=== PATIENT | female | born 1960 | race Caucasian/White ===

== ENCOUNTER 2016-06-10 11:23 | Inpatient (IN) | payer MEDICAID ==
[~2016-06-10] VITALS: Ht 160 cm; Wt 65.5 kg
[2016-06-10 12:18] LABS: BASOPHILS 0.2 % (0.0-2.0); EOSINOPHILS 0.6 % (0-7); HEMATOCRIT 34.7 % (36.0-48.0); HEMOGLOBIN 10.8 g/dL (12-16); IMMATURE GRANULOCYTES 0.4 % (0-5); LYMPHOCYTES 7.4 % (15-50); MCH 26.5 pg (26.0-34.0); MCHC 31.1 g/dL (31.0-37.0); MCV 85.3 fL (80.0-100.0); MEAN PLATELET VOLUME 9.3 fL (7.4-10.4); MONOCYTES 6.7 % (2-11); NEUTROPHILS 84.7 % (40-80); PLATELET COUNT 221 10x3/uL (130-400); RBC 4.07 10x6/uL (4.00-5.40); RDW 14.5 % (11.5-14.5); WBC 8.5 10x3/uL (4.8-10.8)
[2016-06-10 12:29] LABS: ALBUMIN 2.2 g/dL (3.4-5.0); BILIRUBIN - TOTAL 0.26 mg/dL (0.2-1.3); CALCIUM 9.4 mg/dL (8.5-10.1); CARBON DIOXIDE 24.9 mmol/L (21.0-32.0); CREATININE - SERUM 5.5 mg/dL (0.6-1.3); POTASSIUM - SERUM 5.9 mmol/L (3.5-5.1); PROTEIN - SERUM 7.6 g/dL (6.4-8.2)
[2016-06-10 13:12] LABS: APPEARANCE SLT CLOUDY (CLEAR); BILIRUBIN NEGATIVE (NEGATIVE); COLOR YELLOW (YELLOW); GLUCOSE 250 mg/dL (NEGATIVE); KETONE MODERATE mg/dL (NEGATIVE); LEUKOCYTE ESTERASE TRACE (NEGATIVE); NITRITE NEGATIVE (NEGATIVE); PROTEIN 3+ mg/dL (NEGATIVE); UROBILINOGEN NORMAL (NORMAL)
[2016-06-10 13:17] LABS: WHITE CELLS - URINE 0-5 /hpf (0-5)
[2016-06-10 13:18] LABS: BACTERIA MANY /hpf (NONE SEEN); EPITHELIAL CELLS 25-50 /hpf (0-5); MUCUS >1+ /lpf (NONE SEEN)
[2016-06-10 13:19] LABS: GRANULAR CAST RARE /lpf (NONE SEEN); WAXY CAST RARE /lpf (NONE SEEN)
[2016-06-10 20:00] VITALS: BP 182/78
--- NOTE | 2016-06-10 20:00 | NUR ---
PT RECEIVED TO ROOM 2112 AT THIS TIME VIA WHEELCHAIR ACCOMPANIED BY HOSPITAL STAFF AND FAMILY. ORIENTED PT TO ROOM AND CALL LIGHT. PT VERBALIZED UNDERSTANDING. PT CHANGED INTO GOWN AT THIS TIME. ADMISSION HISTORY AND ASSESSMENT COMPLETED PER FLOW SHEET AT THIS TIME. HEART RRR. LUNG SOUNDS CLEAR BILATERALLY. BOWEL SOUNDS ACTIVE X4 QUADRENTS. FISTULA NOTED TO LEFT FOREARM. NOTED BRUIT AND THRILL. S/L NOTED TO RIGHT FOREARM. DRESSING CDI. ABDOMEN SOFT NON-DISTENDED. PT STATES IT FEELS TENDER ON THE INSIDE FROM VOMITING. PT RATES PAIN 8/10 AT THIS TIME. PT DENIES NEEDS. BED LOW. PHONE AND CALL LIGHT IN REACH. SRX2.
[2016-06-10 20:21] VITALS: BP 182/78; BMI 23.0
--- NOTE | 2016-06-10 22:08 | NUR ---
PT IV INITIATED AT THIS TIME NS @ 50 CC/HR WITH MORPHINE SNOW REMOVAL/PLOWING. INSTRUCTED PT ON HOW TO USE SNOW REMOVAL/PLOWING. PT VERBALIZED UNDERSTANDING. DENIES NEEDS. BED LOW. PHONE AND CALL LIGHT IN REACH. SRX2.
--- NOTE | 2016-06-10 23:14 | NUR ---
PT RESTING QUIETLY AT THIS TIME WITH EYES CLOSED. RESPIRATIONS EVEN, NON-LABORED. NO ACUTE DISTRESS NOTED AT THIS TIME. BED LOW. PHONE AND CALL LIGHT IN REACH. SRX2.
[2016-06-11] VITALS: BP 192/81
--- NOTE | 2016-06-11 00:45 | NUR ---
PT RESTING QUIETLY AT THIS TIME WITH EYES CLOSED. AROUSED EASILY. PT REQUESTS ICE WATER AT THIS TIME. DENIES OTHER NEEDS. BED LOW. PHONE AND CALL LIGHT IN REACH. SRX2.
[2016-06-11] MEDS ORDERED: HYDRALAZINE HCL50 MG PO (02:59)
[2016-06-11] MEDS ORDERED: NEURONTIN 300300 MG PO (02:59)
[2016-06-11] MEDS ORDERED: PRINIVIL20 MG PO (03:00)
[2016-06-11] MEDS ORDERED: LASIX80 MG PO (03:00)
[2016-06-11] MEDS ORDERED: PROTONIX40 MG PO (03:01)
[2016-06-11] MEDS ORDERED: RENVELA800 MG PO (03:02)
[2016-06-11] MEDS ORDERED: EFFEXOR75 MG PO (03:04)
[2016-06-11] MEDS ORDERED: PHENERGAN25 M1 PO (03:05)
[2016-06-11] MEDS ORDERED: XANAX0.5 MG PO (03:06)
[2016-06-11] MEDS ORDERED: GLUCOTROL 5 MG T5 MG PO (03:07)
[2016-06-11] MEDS ORDERED: NORCO 7.5/325 T1 TA1 PO (03:33)
[2016-06-11 04:00] VITALS: BP 241/96
--- NOTE | 2016-06-11 04:03 | NUR ---
PT AWAKE AND ALERT AT THIS TIME. REQUESTS ICE WATER AT THIS TIME. DENIES OTHER NEEDS. BED LOW. PHONE AND CALL LIGHT IN REACH. SRX2.
--- NOTE | 2016-06-11 06:45 | NUR ---
PT RESTING QUIETLY AT THIS TIME WATCHING TV. DENIES NEEDS. BED LOW. PHONE AND CALL LIGHT IN REACH. SRX2.
--- NOTE | 2016-06-11 08:15 | NUR ---
PT RESTING IN BED WITH EYES OPEN CALL LIGHT IN REACH NO PROBLEMS WILL MONITER
[2016-06-11 09:19] VITALS: BP 171/75
[2016-06-11 10:06] VITALS: Ht 160 cm; Wt 65.5 kg
--- NOTE | 2016-06-11 10:14 | NUR ---
Patient Name: ARNAUD CORTES Admission Status: ER Accout number: [id number] Admission Date: 06-10-2016 : 1960 Admission Diagnosis: abdominal pain Attending: PATRICIA Current LOS: 1 Anticipated DC Date: 06-13-2016 Planned Disposition: Home Primary Insurance: MEDICAID [place] Discharge Planning Comments: Cm met with patient to complete initial discharge planning assessment. Patient gave consent to complete assessment. Patient reports she lives at home with her mother. She goes to [facility] on and drives herself there. She has been so sick with vomiting that she was not able to drive herself to dialysis on . Her mother stated she is not able to drive. Patient reports that when she feels bad she is just not able to make it to dialysis. Patient plans to return home with her mother at discharge. CM will continue to follow and assist with dc plan/needs. Final Assembly And Packing Supervisor: Alicia Collado RN, [facility] [phone] Is the patient Alert and Oriented? Yes * How many steps to enter\exit or inside your home? 2 * PCP Dr. Vasquez * Pharmacy [facility] * Preadmission Environment Home with Family * ADLs Independent * Equipment None * List name and contact numbers for known caregivers / representatives who currently or will assist patient after discharge: Pamela Johnson [facility] [place]- [phone] * Community resources currently utilized Other * Please name any agencies selected above. Pamela Johnson [facility] [place] - [phone] * Additional services required to return to the preadmission environment? No * Can the patient safely return to the preadmission environment? Yes * Has this patient been hospitalized within the prior 30 days at any hospital? No
[2016-06-11 12:21] VITALS: BP 216/85
--- NOTE | 2016-06-11 13:28 | NUR ---
PT RESTING IN BED WITH EYES OPEN CALL LIGHT IN REACH WILL MONITER
--- NOTE | 2016-06-11 18:19 | NUR ---
PT IS ALERT. NO SS OF DISTRESS AT THIS TIME. WILL CONTINUE TO MOTNIOR.
[2016-06-11 21:37] VITALS: BP 156/60
[2016-06-12] VITALS (7 sets, daily range): BP systolic 156–223; BP diastolic 70–99
--- NOTE | 2016-06-12 02:05 | NUR ---
Recieved patient and report at 1900, alert and oriented, up adlib, morphine HEALTHCARE ECONOMICS MANAGER, refused medications due to nausea, water and call light in reach, bed locked and in low position, continue plan of care, continue to monitor.
--- NOTE | 2016-06-12 03:21 | NUR ---
Patient resting quietly in bed , no acute distress noted.
--- NOTE | 2016-06-12 08:16 | NUR ---
PT GIVEN PAIN MEDS AND NAUSEA MEDS FOR PAIN AND NAUSEA PER ORDER PAIN OF 10/10 PT VERY UPSET SAYING SHE WANTS TO TALK TO HER DR SHE HAS BEEN IN PAIN ALL NIGHT AND NAUSEATED AND SHE WANTED HER DR NOW I CALLED GIANLUCA NURSE PRACTIONER FOR DR COTTON SHE SAID SHE WAS ON HER WAY TO SEE PT
[2016-06-12 09:58] LABS: BASOPHILS 0.4 % (0.0-2.0); EOSINOPHILS 2.4 % (0-7); HEMATOCRIT 32.6 % (36.0-48.0); HEMOGLOBIN 10.1 g/dL (12-16); IMMATURE GRANULOCYTES 0.1 % (0-5); LYMPHOCYTES 12.9 % (15-50); MCH 26.6 pg (26.0-34.0); MEAN PLATELET VOLUME 9.2 fL (7.4-10.4); MONOCYTES 9.3 % (2-11); NEUTROPHILS 74.9 % (40-80); PLATELET COUNT 187 10x3/uL (130-400); RBC 3.79 10x6/uL (4.00-5.40); RDW 14.5 % (11.5-14.5); WBC 6.8 10x3/uL (4.8-10.8)
[2016-06-12 10:53] LABS: ANION GAP 14.5 mmol/L (8-16); CARBON DIOXIDE 25.2 mmol/L (21.0-32.0); CREATININE - SERUM 4.9 mg/dL (0.6-1.3); POTASSIUM - SERUM 4.7 mmol/L (3.5-5.1)
--- NOTE | 2016-06-12 14:56 | NUR ---
PT BLOOD PRESSURE ELEVATED SEPARATOR INSERTER GIANLUCA WITH DIALYSIS CALLED NEW ORDERS FOR HYDRALAZINE WILL GIVE PER ORDER
--- NOTE | 2016-06-12 16:03 | NUR ---
PT IS ALERT. NO SS OF DISTRESS. WILL CONTINUE TO MONITOR.
--- NOTE | 2016-06-12 18:31 | NUR ---
PT GIVEN 25MG PHENEGRAN IM PER ORDER FOR NAUSEA WILL MONITER
--- NOTE | 2016-06-12 19:45 | NUR ---
PT. IN BED WITH HOB UP FOR COMFORT WITH EYES CLOSED AND AWAKENS EASILY I ENTER ROOM. ASSESSMENT COMPLETED. NO VOICED NEEDS AT THIS TIME AND SHE HAS HER CALL LIGHT WITHIN REACH.
--- NOTE | 2016-06-12 21:50 | NUR ---
FIRST APRESOLINE PULLED FROM [employer] SYSTEM WAS IV. IT WAS WASTED AND CORRECT TAB FORM OF APRESOLINE WAS ADMINISTERED.
--- NOTE | 2016-06-12 22:29 | NUR ---
PT. IN BED WITH HOB UP FOR COMFORT WITH EYES CLOSED. PT. AWAKENS EASILY I ENTER ROOM. PT. DENIES ANY NEEDS. HAS NOT HAD ANY NAUSEA/VOMITING SINCE LAST ADMIN. OF ORAL MEDS. CALL LIGHT WITHIN REACH.
--- NOTE | 2016-06-12 23:18 | NUR ---
WITH ASSISTANCE FROM CHARGE NURSE, YONAS RIVER, NEW LAST INSERTER MORPHINE SYRINGE CHANGED OUT AT THIS TIME WITHOUT ANY PROBLEMS.
[2016-06-13] VITALS (7 sets, daily range): BP systolic 138–196; BP diastolic 50–86
--- NOTE | 2016-06-13 02:10 | NUR ---
PT. IN BED WITH HOB UP FOR COMFORT WITH EYES CLOSED AND RESP. DEEP AND EVEN. CALL LIGHT WITHIN REACH. ZOFRAN DRIP, N.S.@50HR AND HARDWOOD FLOORING SPECIALIST ALL INFUSING VIA PUMP WITHOUT ALARMS.
--- NOTE | 2016-06-13 04:09 | NUR ---
PT. IN BED WITH HOB UP FOR COMFORT WITH EYES CLOSED AND RESP. EVEN. IV'S CONTINUE TO INFUSE VIA PUMP WITHOUT ANY ALARMS. CALL LIGHT WITHIN REACH.
[2016-06-13 06:32] LABS: ANION GAP 16.1 mmol/L (8-16); CALCIUM 8.7 mg/dL (8.5-10.1); CARBON DIOXIDE 21.8 mmol/L (21.0-32.0); CREATININE - SERUM 5.4 mg/dL (0.6-1.3); POTASSIUM - SERUM 4.9 mmol/L (3.5-5.1)
[2016-06-13 06:34] LABS: BASOPHILS 0.3 % (0.0-2.0); EOSINOPHILS 2.1 % (0-7); HEMOGLOBIN 8.8 g/dL (12-16); IMMATURE GRANULOCYTES 0.3 % (0-5); LYMPHOCYTES 11.8 % (15-50); MCH 26.3 pg (26.0-34.0); MCHC 30.3 g/dL (31.0-37.0); MCV 86.6 fL (80.0-100.0); MEAN PLATELET VOLUME 9.7 fL (7.4-10.4); NEUTROPHILS 76.5 % (40-80); PLATELET COUNT 163 10x3/uL (130-400); RBC 3.35 10x6/uL (4.00-5.40); RDW 14.5 % (11.5-14.5); WBC 6.1 10x3/uL (4.8-10.8)
--- NOTE | 2016-06-13 07:30 | NUR ---
RECEIVED PT IN BED EYES CLOSED RESP UNLABORED SKIN W/D NAD NOTED
--- NOTE | 2016-06-13 10:43 | NUR ---
FSBS 112 PER PT REQUEST
--- NOTE | 2016-06-13 19:20 | NUR ---
Received patient resting in bed, Alert and orineted mx 4. Has PIV in right forearm, IVs infusing of Zofran @4.7ml/hr, NS @10ml/hr and is on Morphine MELLOWING MACHINE OPERATOR pump with 10.6 ml TBI (To be infused). Patient is on room air, respirations easy and regular, no signs of distress at this time.
--- NOTE | 2016-06-13 19:40 | NUR ---
Given Apresoline 20mg IV PRN for elevated BP - 196/86. Will continue to monitor.
--- NOTE | 2016-06-13 21:14 | NUR ---
BP now = 160/68, Given routine dose of Apresoline with HS medications.
--- NOTE | 2016-06-13 21:57 | NUR ---
Complains of nasuea despite being on Zofran gtt, given Zofran 4mg per IV at this time. Will monitor for effectiveness.
[2016-06-14 02:00] VITALS: BP 171/68
--- NOTE | 2016-06-14 02:36 | NUR ---
Paged 's exchange. Patient has temperature of 100.2 Received return call from Dr. Cintia Thornton, made aware of above and orders received.
--- NOTE | 2016-06-14 02:46 | NUR ---
Given phenergan 25mg po PRN for nausea and Tylenol 325mg po PRN for elevated Temp. 100.2 Will monitor for effectiveness.
[2016-06-14 04:23] LABS: BASOPHILS 0.3 % (0.0-2.0); EOSINOPHILS 1.8 % (0-7); HEMATOCRIT 30.9 % (36.0-48.0); HEMOGLOBIN 9.4 g/dL (12-16); IMMATURE GRANULOCYTES 0.3 % (0-5); LYMPHOCYTES 8.4 % (15-50); MCH 26.3 pg (26.0-34.0); MCHC 30.4 g/dL (31.0-37.0); MCV 86.6 fL (80.0-100.0); MEAN PLATELET VOLUME 9.6 fL (7.4-10.4); MONOCYTES 7.9 % (2-11); NEUTROPHILS 81.3 % (40-80); PLATELET COUNT 188 10x3/uL (130-400); RBC 3.57 10x6/uL (4.00-5.40); RDW 14.8 % (11.5-14.5)
[2016-06-14 04:50] LABS: ANION GAP 16.4 mmol/L (8-16); CALCIUM 8.2 mg/dL (8.5-10.1); CARBON DIOXIDE 22.4 mmol/L (21.0-32.0); POTASSIUM - SERUM 4.8 mmol/L (3.5-5.1); WBC 7.9 10x3/uL (4.8-10.8)
--- NOTE | 2016-06-14 06:30 | NUR ---
Temperature recheck = 99.6, it is too soon to repeat giving Tylenol. Will pass on to day shift nurse. Morphine CHEMISTRY TECHNOLOGIST infusing as ordered with limits, no voiced complaints at this time. States nausea is more controlled at this time.
--- NOTE | 2016-06-14 07:15 | NUR ---
RESTING QUIETLY NAD NOTED
--- NOTE | 2016-06-14 07:49 | NUR ---
Has used 4mg Morphine via LEARNING SUPPORT SPECIALIST this shift.
[2016-06-14 07:52] VITALS: BP 135/69
[2016-06-14 08:55] LABS: APTT 37.1 SECONDS (22.8-39.4); INR 1.19 (0.85-1.17)
[2016-06-14 09:00] LABS: ALBUMIN 1.9 g/dL (3.4-5.0); ANION GAP 17.5 mmol/L (8-16); BILIRUBIN - TOTAL 0.23 mg/dL (0.2-1.3); CALCIUM 8.3 mg/dL (8.5-10.1); CARBON DIOXIDE 21.4 mmol/L (21.0-32.0); POTASSIUM - SERUM 4.9 mmol/L (3.5-5.1); PROTEIN - SERUM 6.6 g/dL (6.4-8.2)
[2016-06-14 11:42] VITALS: BP 158/76
[2016-06-14 15:51] VITALS: BP 149/72
--- NOTE | 2016-06-14 15:51 | NUR ---
OUT TO DIALYSIS
--- NOTE | 2016-06-14 18:58 | NUR ---
Mrs. Moncada had hemodialysis today in the dailysis suite from 1617 until 1809 via her left upper arm av fistula. Average blood flow was 300 mls/minute. Pt. had a HR of 108 upon arival. She continued to have an increased hr up to 138. Orders received to take pt off at this time. Zero net fluid removed. Post vital signs were: B/P;174/74, HR:132, Temp:97.7, Resps:20. Pt. was given a snack per rn for glucose of 80.
[2016-06-14 20:00] VITALS: BP 160/66
--- NOTE | 2016-06-14 22:15 | NUR ---
AT 2145 PT HAD TEMP OF 102.1. DR. WEBER NOTIFIED DUE TO SCHEDULED SURGERY IN THE AM. SURGERY CANCELLED. [facility] FOR [facility] CONTACTED FOR FOR FURTHER ORDERS. BLOOD CULTURES AND TYLENOL 650 Q4HP ENTERED. PT ALSO NOTIFIED OF CANCELLED SURGERY AT THIS TIME.
[2016-06-15] VITALS: BP 121/61
--- NOTE | 2016-06-15 | NUR ---
PT TEMP RECHECKED AND IS NOW 100.7. NEW ZOFRAN BAG HUNG AT 2333 FOR CONTINUOUS DRIP. UNABLE TO CHANGE TIME IN MAY.
[2016-06-15 04:00] VITALS: BP 146/71
--- NOTE | 2016-06-15 04:15 | NUR ---
PT ADMINISTERED PRN TYLENOL 650 FOR TEMP 100.4
[2016-06-15 05:35] LABS: BASOPHILS 0.1 % (0.0-2.0); EOSINOPHILS 2.6 % (0-7); HEMATOCRIT 30.6 % (36.0-48.0); HEMOGLOBIN 9.2 g/dL (12-16); IMMATURE GRANULOCYTES 0.1 % (0-5); LYMPHOCYTES 6.8 % (15-50); MCH 25.8 pg (26.0-34.0); MCHC 30.1 g/dL (31.0-37.0); MCV 85.7 fL (80.0-100.0); MEAN PLATELET VOLUME 9.7 fL (7.4-10.4); MONOCYTES 7.6 % (2-11); NEUTROPHILS 82.8 % (40-80); PLATELET COUNT 175 10x3/uL (130-400); RBC 3.57 10x6/uL (4.00-5.40); RDW 14.6 % (11.5-14.5); WBC 7.2 10x3/uL (4.8-10.8)
[2016-06-15 05:51] LABS: CALCIUM 7.7 mg/dL (8.5-10.1); CREATININE - SERUM 4.7 mg/dL (0.6-1.3)
[2016-06-15 05:58] LABS: ANION GAP 13.1 mmol/L (8-16); POTASSIUM - SERUM 4.1 mmol/L (3.5-5.1)
[2016-06-15 08:21] VITALS: BP 103/68
[2016-06-15 12:36] VITALS: BP 127/68
--- NOTE | 2016-06-15 13:17 | NUR ---
Nutrition follow-up: Diet: Renal ADA PO intake is poor due to continued nausea, vomiting Pt with no BM since admit -> Dulcolax ordered Labs reviewed febrile with 102 temp->surgery cancelled WT: 134# Pt not meeting est nutritional needs with current po intake. RDN will order Nepro nutritional supplement to increase kcal/protein intake. RDN following.
[2016-06-15 14:09] LABS: APPEARANCE HAZY (CLEAR); BILIRUBIN NEGATIVE (NEGATIVE); COLOR YELLOW (YELLOW); GLUCOSE NEGATIVE (NEGATIVE); KETONE NEGATIVE (NEGATIVE); LEUKOCYTE ESTERASE TRACE (NEGATIVE); NITRITE NEGATIVE (NEGATIVE); PROTEIN 3+ mg/dL (NEGATIVE); SPECIFIC GRAVITY 1.015 (1.005-1.020); UROBILINOGEN NORMAL (NORMAL)
[2016-06-15 14:10] LABS: BACTERIA MODERATE /hpf (NONE SEEN); MUCUS <1+ /lpf (NONE SEEN); WHITE CELLS - URINE 0-5 /hpf (0-5)
[2016-06-15 15:35] VITALS: BP 140/65
--- NOTE | 2016-06-15 18:03 | NUR ---
PATIENT SAYS SHE FEELS FUNNY, ASKED ME TO CHECK HER BLOOD SUGAR, IT IS 90, SHE FEELS CLAMMY, SHE DID NOT EAT SUPPER, SHE DID ASK FOR MILK AND SHE IS SNACKING ON HER COOKIES. GOT HER SOME COLD WASHCLOTHS, SHE SAID SHE IS FEELING BETTER NOW. DENIES NEEDS.
[2016-06-15 20:00] VITALS: BP 158/72
--- NOTE | 2016-06-15 20:00 | NUR ---
REPORT RECEIVED AND CARE ASSUMED. LYING IN BED RESTING QUIETLY WITH EYES CLOSED. AROUSES EASILY. DENIES ANY NEEDS OR DISCOMFORT AT THIS TIME. SEE ASSESSMENT FLOW SHEET FOR FURTHER DETAILS. WILL CONTINUE TO MONITOR.
[2016-06-16] VITALS: BP 150/71
--- NOTE | 2016-06-16 01:35 | NUR ---
URINE SENT TO LAB PER PUNCH FINISHER.
[2016-06-16 05:17] LABS: BASOPHILS 0.1 % (0.0-2.0); EOSINOPHILS 3.5 % (0-7); HEMATOCRIT 31.8 % (36.0-48.0); HEMOGLOBIN 9.7 g/dL (12-16); IMMATURE GRANULOCYTES 0.3 % (0-5); LYMPHOCYTES 8.8 % (15-50); MCH 26.1 pg (26.0-34.0); MCHC 30.5 g/dL (31.0-37.0); MCV 85.5 fL (80.0-100.0); MEAN PLATELET VOLUME 9.6 fL (7.4-10.4); MONOCYTES 8.2 % (2-11); NEUTROPHILS 79.1 % (40-80); PLATELET COUNT 173 10x3/uL (130-400); RBC 3.72 10x6/uL (4.00-5.40); RDW 14.7 % (11.5-14.5); WBC 7.4 10x3/uL (4.8-10.8)
[2016-06-16 05:36] LABS: ANION GAP 16.3 mmol/L (8-16); CALCIUM 8.2 mg/dL (8.5-10.1); CARBON DIOXIDE 22.7 mmol/L (21.0-32.0); CREATININE - SERUM 5.4 mg/dL (0.6-1.3)
[2016-06-16 06:28] VITALS: BP 167/65
[2016-06-16 08:17] VITALS: BP 139/57
--- NOTE | 2016-06-16 09:20 | NUR ---
MEDS ADMINISTERED WITHOUT DIFFICULTY. B/P MEDS HELD DUE TO SCHEDULED DIALYSIS. ALERT AND ORIENTED. CALM AND COOPERATIVE. FISTULA WITH BRUIT AND THRILL PRESENT. PERIPHERAL IV TO RIGHT FOREARM WITH ZOFRAN INFUSING AT 4.7 CC/HR AND NS INFUSING AT 50CC/HR WITHOUT DIFFICULTY. RELATES PAIN 3/10 TO STOMACH DESCRIBED A CONSTANT CRAMP. CALL LIGHT WITHIN REACH AND BED IN LOW POSITON.
--- NOTE | 2016-06-16 09:27 | NUR ---
PRN BUPRENEX ADMINISTERED IV WITHOUT DIFFICULTY.
[2016-06-16 11:50] VITALS: BP 137/67
[2016-06-16 12:43] LABS: BASOPHILS 0.2 % (0.0-2.0); EOSINOPHILS 2.9 % (0-7); HEMATOCRIT 31.5 % (36.0-48.0); HEMOGLOBIN 9.5 g/dL (12-16); IMMATURE GRANULOCYTES 0.4 % (0-5); LYMPHOCYTES 6.5 % (15-50); MCH 26.2 pg (26.0-34.0); MCHC 30.2 g/dL (31.0-37.0); MCV 86.8 fL (80.0-100.0); MEAN PLATELET VOLUME 9.9 fL (7.4-10.4); MONOCYTES 9.8 % (2-11); NEUTROPHILS 80.2 % (40-80); PLATELET COUNT 163 10x3/uL (130-400); RBC 3.63 10x6/uL (4.00-5.40); RDW 14.9 % (11.5-14.5)
[2016-06-16 12:47] LABS: WBC 9.6 10x3/uL (4.8-10.8)
[2016-06-16 12:51] LABS: APTT 29.7 SECONDS (22.8-39.4); INR 1.19 (0.85-1.17)
[2016-06-16 12:58] LABS: ANION GAP 16.6 mmol/L (8-16); BILIRUBIN - TOTAL 0.14 mg/dL (0.2-1.3); CALCIUM 8.1 mg/dL (8.5-10.1); CARBON DIOXIDE 24.6 mmol/L (21.0-32.0); CREATININE - SERUM 5.5 mg/dL (0.6-1.3); POTASSIUM - SERUM 4.2 mmol/L (3.5-5.1); PROTEIN - SERUM 6.1 g/dL (6.4-8.2)
--- NOTE | 2016-06-16 14:42 | NUR ---
MEDS ADMINISTERED PER ORDERS. B/P MED HELD RECEIVING DIALYSIS. C/O STOMACH CRAMPS. BUPRENEX PRN ADMINISTERED. DENIES NEEDS.
--- NOTE | 2016-06-16 16:21 | NUR ---
CALCIUM GLUCONATE ADMINISTERED FOR CRITICAL CALCIUM 0.74 PER ORDERS. RECEIVING DIALYSIS. NO C/O VOICED. DENIES NEEDS.
[2016-06-16 20:00] VITALS: BP 150/81
--- NOTE | 2016-06-16 20:45 | NUR ---
REPORT RECEIVED AND CARE ASSUMED. LYING IN BED TALKING ON TELEPHONE. NO S/S OF DISTRESS NOTED. CALM AND COOPERATIVE. SMILING AND IN PLEASANT MOOD. SEE ASSESSMENT FLOW SHEET FOR FURTHER DETAILS. UP AD KADE TO BATHROOM. WILL CONTINUE TO MONITOR.
[2016-06-17] VITALS (13 sets, daily range): BP systolic 121–199; BP diastolic 47–79
[2016-06-17 05:41] LABS: BASOPHILS 0.4 % (0.0-2.0); EOSINOPHILS 4.5 % (0-7); HEMATOCRIT 32.9 % (36.0-48.0); HEMOGLOBIN 10.1 g/dL (12-16); IMMATURE GRANULOCYTES 0.3 % (0-5); LYMPHOCYTES 10.4 % (15-50); MCH 26.3 pg (26.0-34.0); MCHC 30.7 g/dL (31.0-37.0); MCV 85.7 fL (80.0-100.0); MEAN PLATELET VOLUME 9.7 fL (7.4-10.4); MONOCYTES 9.4 % (2-11); RBC 3.84 10x6/uL (4.00-5.40); RDW 14.8 % (11.5-14.5)
[2016-06-17 05:45] LABS: PLATELET COUNT 213 10x3/uL (130-400)
[2016-06-17 05:58] LABS: CALCIUM 7.9 mg/dL (8.5-10.1); CARBON DIOXIDE 30.6 mmol/L (21.0-32.0); POTASSIUM - SERUM 3.6 mmol/L (3.5-5.1)
[2016-06-17 05:59] LABS: CREATININE - SERUM 3.8 mg/dL (0.6-1.3)
--- NOTE | 2016-06-17 07:58 | NUR ---
0742-AM ROUNDING DONE WITH PATIENT BEING NPO PAST MIDNIGHT. FOR SURGERY TODAY. RIGHT FA WITH NS INFUSING AT 50 CC/HR AND ZOFRAN DRIP AT 4.7 CC/HR. LEFT AVF WITH + BRUIT AND THRILL. ON ROOM AIR. WILL CONTINUE TO MONITOR.
--- NOTE | 2016-06-17 11:05 | NUR ---
1045-ASKED NOAH (DR WEBER'S NURSE) IF I NEEDED TO GIVE NITRO OINTMENT PRE-OP. SHE REPLIED "IF IT'S ORDERED GO AHEAD AND GIVE, IT WON'T HURT".
--- NOTE | 2016-06-17 12:18 | NUR ---
1145-TO SURGERY VIA BED.
--- NOTE | 2016-06-17 12:59 | NUR ---
Nutrition Follow Up: Chart reviewed. Pt in OR at this time. Pt continues with poor po intake (20% meal avg). Wt gain of 22# since admit noted per chart. No BM since admit. Labs noted - BUN, Cr elevated. Meds noted including NS @ 50 ml/hr, Dulcolax, Phenergan, Zofran, Lasix, Glipizide. Rec advancing diet as tolerated when medically feasible. RD will continue to monitor pt progress.
--- NOTE | 2016-06-17 13:49 | CN ---
PATIENT NAME:ARNAUD CORTES MEDICAL RECORD: [id number] : 60 LOCATION:D. D.2113 ADMIT DATE: 06/10/16 ACCOUNT: [id number] CONSULTING PHYSICIAN: TOÑITO KENNEDY MD REFERRING PHYSICIAN: VICKY COTTON MD DATE OF CONSULTATION: 06/13/2016 CONSULT REQUESTING PHYSICIAN: Lyle Duffy MD REASON FOR CONSULTATION: Pulmonary nodule, mediastinal lymphadenopathy, and abdominal lymphadenopathy. HISTORY OF PRESENT ILLNESS: Ms. Cortes is a 55-year-old female, who has a history of renal cell carcinoma that was diagnosed in 2009. She underwent left nephrectomy, as well as an adenotonsillectomy at [facility]. Since then, the patient have not seen any oncologist and they have no radiological workup since then. The patient is admitted with constipation and CT abdomen showed she has abdominal mesenteric lymphadenopathy, seen by Dr. Coppola and he ordered a CT scan of the chest, which showed mediastinal lymphadenopathy and pulmonary nodule. REVIEW OF SYSTEMS: Mainly in the history of present illness. PAST MEDICAL HISTORY: 1. Renal cell carcinoma of the left kidney. 2. Diabetes. 3. Hypoadrenalism. PAST SURGICAL HISTORY: 1. She has a left nephrectomy in 2009. 2. Adrenalectomy in 2009. 3. She has a knee surgery. ALLERGIES: SHE IS ALLERGIC TO BETA-SAUL AND CODEINE. PRESENT MEDICATIONS: On [employer] was reviewed. PERSONAL AND SOCIAL HISTORY: The patient still continues to smoke 1 pack per day since the age of 16. There is no documented COPD. She is a nondrinker. FAMILY HISTORY: Her parents have cancer. PHYSICAL EXAMINATION: GENERAL: Now, the patient is lying comfortably. She is not in acute distress. VITAL SIGNS: The blood pressure is 152/72, pulse is 97, respirations 18, temperature is 99.1, and SpO2 is 98% on room air. HEENT: Conjunctivae pink, sclerae nonicteric. NECK: Neck is supple, no JVD. CHEST: The chest excursion is minimal on both sides. There is no wheeze, no rales. HEART: Rhythm regular, normal sound. No murmur. ABDOMEN: Abdomen is soft. Bowel sounds present. No hepatosplenomegaly. RECTAL: Deferred. EXTREMITIES: No cyanosis, no clubbing, no pedal edema. SKIN: The skin is warm, normal turgor. CENTRAL NERVOUS SYSTEM: The patient is awake and alert. There is no obvious CONSULT REPORT [id number] SEBASTIAN,SEALLESS [place] cranial nerve abnormality. The gait was not tested. IMAGING: CT scan of the chest, there is mediastinal lymphadenopathy. There is also right lower lobe pulmonary nodule, which is nearly 6 mm. OTHER LABORATORY DATA: CBC: WBC is 6.1, hemoglobin 8.8, hematocrit 29 and platelet count 163. Chemistry: Sodium 133, potassium 4.9, BUN is 39, and creatinine is 5.4. IMPRESSION: 1. Mediastinal and abdominal lymphadenopathy, possible recurrence of renal carcinoma, doubt primary lymphoma. 2. Right pulmonary nodule, suspicious for metastasis. 3. History of renal cell carcinoma, status post left nephrectomy and adrenalectomy. 4. Diabetes mellitus. 5. Nausea. 6. Chronic kidney disease. RECOMMENDATION: The patient already seen by Dr. Coppola, the oncologist. I will consult Dr. Leggett for possible mediastinoscopy. I already discussed with him, discussed with Dr. Lyle Duffy. Dr. Duffy, once again thanks for involving me in the care of Ms. Cortes. TRANSINT:[id number] Voice Confirmation ID: [id number] DOCUMENT ID: [id number] TOÑITO KENNEDY MD at 1349 CC: LYLE DUFFY MD [id number] DICTATION DATE: 06/13/161613 FRANCHISE SPECIALIST: 06/13/162053 ADM IN [place] [id number] [place] [id number]
--- NOTE | 2016-06-17 14:56 | NUR ---
1450-RECEIVED VIA BED FROM RECOVERY ROOM WITH RIGHT CVL (DOUBLE LUMEN) WITH DRESSING DATED 06/17/16. LAROSE DRESSING SEEN TO ANTERIOR NECK WITH DATE 06/17/16. FAMILY MEMBER AT BEDSIDE. WILL MONITOR.
--- NOTE | 2016-06-17 15:24 | NUR ---
GIANLUCA LY APN BEEPED TO SEE ABOUT CONTINUING IV FLUIDS AND ZOFRAN DRIP. AWAITING CALL BACK.
--- NOTE | 2016-06-17 15:26 | NUR ---
SONAL LY APN TO CALL BACK AND WE ARE TO RESUME PREVIOUS ORDERS.
--- NOTE | 2016-06-17 18:03 | NUR ---
DENIES NEEDS AT PRESENT TIME. FAMILY AT BEDSIDE VISITING. WILL CONTINUE TO MONITOR.
--- NOTE | 2016-06-17 19:03 | NUR ---
BILATERAL ZIGGY HOSE ON AND SCD'S IN USE. FAMILY AT BEDSIDE. WILL CONTINUE TO MONITOR.
[2016-06-18 00:23] VITALS: BP 109/67
--- NOTE | 2016-06-18 00:54 | NUR ---
ASSESSED AT THE BEGINNING OF THE SHIFT. PATIENT IS ALERT AND ORIENTED, ABLE TO VERBALIZE NEEDS.SHE HAS A SECURE DRESSING TO HER THROAT THAT IS WELL SEALED. THERE ARE ZIGGY HOSE AND SCD'S IN PLACE. SHE HAS A FISTULA TO THE LEFT ARM THAT HAS A GOOD BRUIT. CLOSE TO 2100 SHE WAS HURTING IN HER NECK AND HER BACK. SHE RECEIVED BUPRENEX ORDERED AND OBTAINED RELIEF. SHE WAS ASLEEP ON THE LAST CHECK. THE BED IS LOW, RAILS UP X'S 2 WITH THE CALL LIGHT AT HAND.
[2016-06-18 04:25] VITALS: BP 122/63
[2016-06-18 07:00] VITALS: BP 147/61
--- NOTE | 2016-06-18 07:39 | NUR ---
0715-AM ROUNDING DONE WITH PATIENT COMPLAINING SLIGHTLY OF PAIN 07/04. SHE WAS MEDICATED JUST PRIOR TO SHIFT WITH BUPERNEX. RIGHT CVL WITH 06/17 DATE ON DRESSING SEEN WITH ZOFRAN 4.7 CC/HR AND NS INFUSING AT 50 CC/HR WITHOUT PROLEMS. LEFT AVF WITH + BRUIT AND THRILL, FOR DIALYSIS TODAY. LAROSE DRESSING SEEN WITH 06/17 DATE TO ANTERIOR NECK, DRY AND INTACT. BILATERAL ZIGGY HOSE ON, SCD'S ARE OFF AT PRESENT TIME. ON ROOM AIR. WILL CONTINUE TO MONITOR.
[2016-06-18 10:15] LABS: BASOPHILS 0.1 % (0.0-2.0); EOSINOPHILS 2.5 % (0-7); IMMATURE GRANULOCYTES 0.4 % (0-5); LYMPHOCYTES 10.1 % (15-50); MCH 26.3 pg (26.0-34.0); MCHC 30.3 g/dL (31.0-37.0); MCV 86.7 fL (80.0-100.0); MEAN PLATELET VOLUME 9.7 fL (7.4-10.4); MONOCYTES 9.9 % (2-11); RDW 15.1 % (11.5-14.5); WBC 7.1 10x3/uL (4.8-10.8)
[2016-06-18 10:26] LABS: RBC 2.93 10x6/uL (4.00-5.40)
[2016-06-18 10:28] LABS: HEMATOCRIT 25.4 % (36.0-48.0); HEMOGLOBIN 7.7 g/dL (12-16); PLATELET COUNT 150 10x3/uL (130-400)
[2016-06-18 10:30] LABS: ANION GAP 15.4 mmol/L (8-16); CALCIUM 7.7 mg/dL (8.5-10.1); CARBON DIOXIDE 23.4 mmol/L (21.0-32.0); CREATININE - SERUM 4.2 mg/dL (0.6-1.3); POTASSIUM - SERUM 3.8 mmol/L (3.5-5.1)
[2016-06-18 12:00] VITALS: BP 142/62
--- NOTE | 2016-06-18 13:42 | NUR ---
1325-IV FLUIDS ARE SALINE LOCKED ORDERED. TYLENOL GIVEN FOR NECK PAIN REQUESTED.
--- NOTE | 2016-06-18 15:19 | NUR ---
TO DIALYSIS VIA WHEELCHAIR.
--- NOTE | 2016-06-18 20:46 | NUR ---
PT RECIEVED IN BED WATCHING TV. COMPLAINS OF NAUSEA WITH PRN ZOFRAN GIVEN PER MAR. RECEIVED SCHEDULED MEDICATIONS WITHOUT DIFFICULTY PER MAR. NO OTHER CONCERNS. ON PHONE WITH FAMILY AT THIS TIME. CALL LIGHT IN REACH.
[2016-06-18 20:47] VITALS: BP 172/74
[2016-06-18 22:39] VITALS: BP 172/74
[2016-06-19] VITALS (7 sets, daily range): BP systolic 133–179; BP diastolic 56–79
--- NOTE | 2016-06-19 | NUR ---
PT CLAMY WITH BLOOD SUGAR CHECKED WITH A READING OF184 PER REQUEST. V/S 133/57, 107, 16, 99.6 ORAL. WILL CONTINUE TO OBSERVE.
--- NOTE | 2016-06-19 03:19 | NUR ---
PT IN BED RESTING WITH EYES CLOSED AND CHEST RISING. NO SIGN/SYMPTOMS OF DISTRESS NOTED AT THIS TIME. CALL LIGHT IN REACH.
[2016-06-19 05:49] LABS: BASOPHILS 0.1 % (0.0-2.0); EOSINOPHILS 2.9 % (0-7); IMMATURE GRANULOCYTES 0.5 % (0-5); LYMPHOCYTES 11.7 % (15-50); MCH 28.1 pg (26.0-34.0); MCHC 32.9 g/dL (31.0-37.0); MCV 85.3 fL (80.0-100.0); MEAN PLATELET VOLUME 9.8 fL (7.4-10.4); MONOCYTES 11.7 % (2-11); NEUTROPHILS 73.1 % (40-80); PLATELET COUNT 156 10x3/uL (130-400); RDW 14.9 % (11.5-14.5); WBC 7.7 10x3/uL (4.8-10.8)
[2016-06-19 05:50] LABS: HEMATOCRIT 34.3 % (36.0-48.0); HEMOGLOBIN 11.3 g/dL (12-16); RBC 4.02 10x6/uL (4.00-5.40)
[2016-06-19 06:06] LABS: CALCIUM 7.8 mg/dL (8.5-10.1); CREATININE - SERUM 3.3 mg/dL (0.6-1.3)
[2016-06-19 06:07] LABS: ANION GAP 10.9 mmol/L (8-16); CARBON DIOXIDE 29.3 mmol/L (21.0-32.0); POTASSIUM - SERUM 3.2 mmol/L (3.5-5.1)
--- NOTE | 2016-06-19 06:33 | NUR ---
PT IN BED WITH EYES OPEN WATCHING TV. RECEIVED MEDICATIONS PER MAR WITHOUT DIFFICULTY. PRN DULCOLAX GIVEN PER REQUEST FOR CONSTIPATION. TOLERATED WELL. NO OTHER CONCERNS MADE KNOWN AT THIS TIME. CALL LIGHT IN REACH.
--- NOTE | 2016-06-19 07:29 | NUR ---
ASSISTED TO CHAIR FOR BREAKFAST, REQUESTS TYLENOL, GIVEN FOR PAIN 07/04. LINENS CHANGED. DRESING TO ANTERIOR THROAT DRY AND INTACT W DATE 06/17, RIGHT DBL LUMEN CVL DRESSING DRY ANDINTACT W DATE 06/17. BILATERAL ZIGGY HOSE ON AT PRESENT TIME. SCD'S OFF WHILE IN CHAIR. LEFT AVF WITH + BRUIT AND THRILL.
--- NOTE | 2016-06-19 09:40 | NUR ---
ASSISTED TO BATHROOM FOR SHOWER.
--- NOTE | 2016-06-19 10:01 | NUR ---
DRESSING TO ANTERIOR NECK IS WET AND COMING OFF FROM SHOWER EVEN THOUGH IT WAS COVERED. REMOVED, SURGIACAL INCISION IS CLEAN AND DRY WITH EDGES HEALING. MEPILEX LORDER LITE PLACED OVER INCISION AND DATED.
--- NOTE | 2016-06-19 10:16 | NUR ---
1000-ZIGGY HOSE OFF AT PRESENT FROM SHOWER. WILL REPLACE IN ONE HOUR
--- NOTE | 2016-06-19 11:11 | NUR ---
BILATERAL ZIGGY HOSE REPLACED.
--- NOTE | 2016-06-19 12:51 | OP ---
PATIENT NAME: ARNAUD CORTES MEDICAL RECORD: [id number] :60 LOCATION:D. D.2113 ADMISSION DATE:06/10/16 SURGEON: KELLY WEBER MD DATE OF OPERATION: 06/17/2016 SURGEON: Kelly Weber MD. ANESTHESIA: General, Dr. Swift, Dr. Tong. OPERATION PERFORMED: 1. Mediastinoscopy with mediastinal biopsies. 2. Flexible fiberoptic bronchoscopy with bilateral bronchioalveolar lavage. PREOPERATIVE DIAGNOSIS: Mediastinal adenopathy. POSTOPERATIVE DIAGNOSIS: Mediastinal adenopathy. INDICATION FOR OPERATION: Mediastinal adenopathy. FINDINGS OF THE OPERATION: 1. Mediastinal frozen section biopsy was negative for tumor hyperplastic nodes. 2. Mediastinal culture was taken from necrotic node for TB, fungus and routine. Mediastinal lymph node biopsies were sent for histology. Bilateral bronchioalveolar lavage was sent for TB and fungus. ESTIMATED BLOOD LOSS: Less than 5 cc. DESCRIPTION OF PROCEDURE: After informed consent, adequate preoperative medication evaluation, the patient was brought to the operating room, placed on the table in the supine position. After induction of general endotracheal anesthesia and application of appropriate monitoring devices, the chest and neck were prepped and draped in a sterile field, utilizing Betadine scrub, alcohol, and Betadine solution. A Betadine-impregnated drape was also used. A small 2-cm transverse incision was made above the sternal notch and dissection carried down to the pretracheal fascia. The pretracheal fascia was opened, then utilizing sharp and blunt dissection the scope was passed to the cristobal. The scope was slowly withdrawn and anterior pretracheal lymph nodes were identified. Aspiration of the node revealed no bleeding. Biopsies were then taken of the nodes and sent for the above studies. The frozen section was negative for malignancy. The neck was irrigated. Instrument count and sponge count were correct times 2. Neck was closed in layers utilizing 3-0 Vicryl on the platysma and 5-0 subcuticular Monocryl on the skin. Sterile dressing was applied. The patient then underwent flexible fiberoptic bronchoscopy bilaterally. The tracheobronchial tree was normal. Bronchioalveolar lavage was performed in the lower lobes bilaterally and sent to pathology for TB and fungus. The patient tolerated the procedure well and was transferred to postanesthesia recovery in satisfactory condition. TRANSINT:[id number] Voice Confirmation ID: [id number] DOCUMENT ID: [id number] OPERATIVE REPORT [id number] ARNAUD CORTES EDWARD MD at 1251 CC: [id number] DICTATION DATE: 06/17/161423 DISTILLERY MILLER HELPER: 06/17/16 1641 ADM IN [facility] [address] [place] [address]
--- NOTE | 2016-06-19 13:07 | NUR ---
AMBULATED WITH THIS NURSE TO NURSE STATION AND BACK TO CHAIR. PATIENT IS VERY NAUSEATED. COOL RAG OFFERED. NO EMESIS YET.
--- NOTE | 2016-06-19 13:34 | NUR ---
COMPLAINTS OF NAUSEA. PHENERGAN 25MG IM RO RIGHT HIP.
--- NOTE | 2016-06-19 17:43 | NUR ---
1740-TO CT VIA WHEELCHAIR.
--- NOTE | 2016-06-19 17:56 | NUR ---
RETURNS FROM RADIOLOGY.
--- NOTE | 2016-06-19 19:55 | NUR ---
AROUSES EASILY, REPORTS TO HAVING "A SORE STOMACH". ENCOURGED TO EAT SOMETHING IF POSSIBLE. NO BM YET. DENIES ANY NEEDS AT PRESENT TIME. WILL CONTINUE TO MONITOR.
[2016-06-20] VITALS: BP 154/75
--- NOTE | 2016-06-20 01:07 | NUR ---
SLEEPING, SRX2, BED IS LOW, CALL LIGHT IN REACH, WILL CONTINUE TO MONITOR
[2016-06-20 04:00] VITALS: BP 140/75
[2016-06-20 05:45] LABS: BASOPHILS 0.1 % (0.0-2.0); EOSINOPHILS 3.3 % (0-7); HEMATOCRIT 33.5 % (36.0-48.0); HEMOGLOBIN 10.4 g/dL (12-16); LYMPHOCYTES 9.7 % (15-50); MCH 26.6 pg (26.0-34.0); MCV 85.7 fL (80.0-100.0); MEAN PLATELET VOLUME 9.7 fL (7.4-10.4); MONOCYTES 10.4 % (2-11); NEUTROPHILS 75.5 % (40-80); PLATELET COUNT 169 10x3/uL (130-400); RBC 3.91 10x6/uL (4.00-5.40); RDW 15.1 % (11.5-14.5); WBC 7.3 10x3/uL (4.8-10.8)
[2016-06-20 05:54] LABS: ANION GAP 10.7 mmol/L (8-16); CALCIUM 7.6 mg/dL (8.5-10.1); CARBON DIOXIDE 27.6 mmol/L (21.0-32.0); POTASSIUM - SERUM 3.3 mmol/L (3.5-5.1)
[2016-06-20 05:58] LABS: CREATININE - SERUM 4.2 mg/dL (0.6-1.3)
[2016-06-20 08:15] VITALS: BP 172/79
--- NOTE | 2016-06-20 08:20 | NUR ---
PT UP IN CHAIR AT BED SIDE CALL LIGHT IN REACH EATING BREAKFAST WILL MONITER
--- NOTE | 2016-06-20 09:55 | NUR ---
NO NEEDS VOICED. CALL LIGHT IN REACH. WILL CONT. PLAN OF CARE.
[2016-06-20] MEDS ORDERED: ZOFRAN4 MG PO (11:38)
[2016-06-20 12:24] VITALS: BP 145/70
--- NOTE | 2016-06-20 13:40 | NUR ---
PT DISCHARGED TO HOME VIA WHEELCHAIR WITH PTS DISCHARGE SUMMARY AND MEDS REVIEWED WITH PT NO QUESTIONS
[2016-06-20 17:10] LABS: ACID FAST SMEAR Negative (()); AFB SPECIMEN PROCESSING Concentration (())
[2016-06-21 15:24] LABS: FUNGUS STAIN Final report (())
[2016-06-27 12:12] LABS: FUNGUS STAIN RESULT 1 None seen (())
[2016-07-19 07:23] LABS: FUNGUS MYCOLOGY CULTURE Final report (())
== END 2016-06-20 14:30 | disposition home or self-care (01) | DRG 814 ==
LOC: D.ER 11:23 → D.M2 18:54
PROVIDERS: Emergency Medicine; Internal Medicine Cardiovascular Disease; ADMIT Internal Medicine
PROC: 5A1D60Z (ICD-10-PCS; 2016-06-11)
PROC: 0B938ZX Drainage of Right Main Bronchus, Via Natural or Artificial Opening Endoscopic, Diagnostic (ICD-10-PCS; 2016-06-17)
PROC: 0WBC4ZX Excision of Mediastinum, Percutaneous Endoscopic Approach, Diagnostic (ICD-10-PCS; principal; 2016-06-17 13:00)
PROC: 0B978ZX Drainage of Left Main Bronchus, Via Natural or Artificial Opening Endoscopic, Diagnostic (ICD-10-PCS; 2016-06-17 13:00)
DX: R59.0 Localized enlarged lymph nodes (principal); N18.6 End stage renal disease; N39.0 Urinary tract infection, site not specified; I12.0 Hypertensive chronic kidney disease with stage 5 chronic kidney disease or end stage renal disease; E11.22 Type 2 diabetes mellitus with diabetic chronic kidney disease; Z99.2 Dependence on renal dialysis; K59.00 Constipation, unspecified; R91.1 Solitary pulmonary nodule; D64.9 Anemia, unspecified; E83.51 Hypocalcemia; Z85.53 Personal history of malignant neoplasm of renal pelvis; Z72.0 Tobacco use

== ENCOUNTER 2016-06-28 17:43 | Emergency (ER) | payer MEDICAID ==
[2016-06-11 10:06] VITALS: BMI 22.5
[~2016-06-28 17:43] MED LIST: EFFEXOR75 MG PO; GLUCOTROL 5 MG T5 MG PO; HYDRALAZINE HCL50 MG PO; LASIX80 MG PO; NEURONTIN 300300 MG PO; NORCO 7.5/325 T1 TA1 PO; PHENERGAN25 M1 PO; PRINIVIL20 MG PO; PROTONIX40 MG PO; RENVELA800 MG PO; XANAX0.5 MG PO; ZOFRAN4 MG PO
[2016-06-28 18:32] LABS: BASOPHILS 0.5 % (0.0-2.0); EOSINOPHILS 0.6 % (0-7); HEMATOCRIT 37.6 % (36.0-48.0); HEMOGLOBIN 11.6 g/dL (12-16); IMMATURE GRANULOCYTES 0.4 % (0-5); LYMPHOCYTES 6.9 % (15-50); MCH 26.6 pg (26.0-34.0); MCHC 30.9 g/dL (31.0-37.0); MCV 86.2 fL (80.0-100.0); MEAN PLATELET VOLUME 9.6 fL (7.4-10.4); MONOCYTES 7.7 % (2-11); NEUTROPHILS 83.9 % (40-80); RBC 4.36 10x6/uL (4.00-5.40); RDW 14.9 % (11.5-14.5); WBC 9.5 10x3/uL (4.8-10.8)
[2016-06-28 18:52] LABS: PLATELET COUNT 228 10x3/uL (130-400)
[2016-06-28 18:58] LABS: ANION GAP 15.5 mmol/L (8-16); BILIRUBIN - TOTAL 0.16 mg/dL (0.2-1.3); CALCIUM 7.8 mg/dL (8.5-10.1); CARBON DIOXIDE 27.8 mmol/L (21.0-32.0); CREATININE - SERUM 3.2 mg/dL (0.6-1.3); POTASSIUM - SERUM 5.3 mmol/L (3.5-5.1); PROTEIN - SERUM 6.3 g/dL (6.4-8.2)
[2016-06-28 19:42] LABS: APPEARANCE CLEAR (CLEAR); BACTERIA FEW /hpf (NONE SEEN); BILIRUBIN NEGATIVE (NEGATIVE); COLOR YELLOW (YELLOW); GLUCOSE 250 mg/dL (NEGATIVE); HYALINE CAST 0-5 /lpf (NONE SEEN); KETONE NEGATIVE (NEGATIVE); LEUKOCYTE ESTERASE NEGATIVE (NEGATIVE); NITRITE NEGATIVE (NEGATIVE); PROTEIN 2+ mg/dL (NEGATIVE); RED CELLS - URINE 0-5 /hpf (0-5); UROBILINOGEN NORMAL (NORMAL); WHITE CELLS - URINE 0-5 /hpf (0-5)
== END 2016-06-28 21:30 | disposition home or self-care (01) ==
LOC: D.ER 17:43
PROVIDERS: Emergency Medicine
DX: R10.9 Unspecified abdominal pain (principal); R11.10 Vomiting, unspecified; F17.200 Nicotine dependence, unspecified, uncomplicated; F41.9 Anxiety disorder, unspecified; N18.6 End stage renal disease; Z99.2 Dependence on renal dialysis; E11.9 Type 2 diabetes mellitus without complications

== ENCOUNTER 2016-07-02 15:01 | Emergency (ER) | payer MEDICARE ==
[2016-06-11 10:06] VITALS: BMI 22.5
[2016-07-02 16:02] LABS: BASOPHILS 0.6 % (0.0-2.0); EOSINOPHILS 1.6 % (0-7); HEMATOCRIT 37.7 % (36.0-48.0); HEMOGLOBIN 11.6 g/dL (12-16); IMMATURE GRANULOCYTES 0.3 % (0-5); LYMPHOCYTES 13.9 % (15-50); MCH 26.8 pg (26.0-34.0); MCHC 30.8 g/dL (31.0-37.0); MCV 87.1 fL (80.0-100.0); MEAN PLATELET VOLUME 9.4 fL (7.4-10.4); MONOCYTES 6.6 % (2-11); PLATELET COUNT 244 10x3/uL (130-400); RBC 4.33 10x6/uL (4.00-5.40); RDW 15.2 % (11.5-14.5); WBC 7.7 10x3/uL (4.8-10.8)
[2016-07-02 16:07] LABS: APPEARANCE CLEAR (CLEAR); BILIRUBIN NEGATIVE (NEGATIVE); COLOR YELLOW (YELLOW); GLUCOSE 250 mg/dL (NEGATIVE); KETONE SMALL mg/dL (NEGATIVE); LEUKOCYTE ESTERASE NEGATIVE (NEGATIVE); NITRITE NEGATIVE (NEGATIVE); PROTEIN 3+ mg/dL (NEGATIVE); UROBILINOGEN NORMAL (NORMAL)
[2016-07-02 16:18] LABS: BACTERIA FEW /hpf (NONE SEEN); EPITHELIAL CELLS 0-5 /hpf (0-5); HYALINE CAST RARE /lpf (NONE SEEN); RED CELLS - URINE 25-50 /hpf (0-5); WHITE CELLS - URINE 0-5 /hpf (0-5)
[2016-07-02 16:21] LABS: ALBUMIN 2.1 g/dL (3.4-5.0); ANION GAP 18.3 mmol/L (8-16); BILIRUBIN - TOTAL 0.28 mg/dL (0.2-1.3); CALCIUM 8.3 mg/dL (8.5-10.1); CARBON DIOXIDE 23.1 mmol/L (21.0-32.0); POTASSIUM - SERUM 4.4 mmol/L (3.5-5.1); PROTEIN - SERUM 6.8 g/dL (6.4-8.2)
== END 2016-07-02 19:50 | disposition home or self-care (01) ==
LOC: D.ER 15:01
PROVIDERS: Emergency Medicine
DX: R10.9 Unspecified abdominal pain (principal); R11.10 Vomiting, unspecified; F17.200 Nicotine dependence, unspecified, uncomplicated; N18.6 End stage renal disease; E11.9 Type 2 diabetes mellitus without complications

== ENCOUNTER 2016-07-04 16:42 | Emergency (ER) | payer MEDICARE, MEDICAID ==
[2016-06-11 10:06] VITALS: BMI 22.5
[2016-07-04 17:54] LABS: BASOPHILS 0.4 % (0.0-2.0); EOSINOPHILS 2.5 % (0-7); HEMATOCRIT 33.9 % (36.0-48.0); HEMOGLOBIN 10.8 g/dL (12-16); IMMATURE GRANULOCYTES 0.3 % (0-5); LYMPHOCYTES 12.9 % (15-50); MCHC 31.9 g/dL (31.0-37.0); MCV 84.8 fL (80.0-100.0); MEAN PLATELET VOLUME 9.5 fL (7.4-10.4); MONOCYTES 8.6 % (2-11); NEUTROPHILS 75.3 % (40-80); PLATELET COUNT 220 10x3/uL (130-400); RDW 15.6 % (11.5-14.5); WBC 6.8 10x3/uL (4.8-10.8)
[2016-07-04 18:21] LABS: ANION GAP 17.1 mmol/L (8-16); BILIRUBIN - TOTAL 0.21 mg/dL (0.2-1.3); CALCIUM 7.8 mg/dL (8.5-10.1); CARBON DIOXIDE 20.6 mmol/L (21.0-32.0); CREATININE - SERUM 4.7 mg/dL (0.6-1.3); POTASSIUM - SERUM 4.7 mmol/L (3.5-5.1); PROTEIN - SERUM 6.3 g/dL (6.4-8.2)
[2016-07-04 18:31] LABS: APPEARANCE CLEAR (CLEAR); COLOR YELLOW (YELLOW); LEUKOCYTE ESTERASE NEGATIVE (NEGATIVE); NITRITE NEGATIVE (NEGATIVE); PROTEIN TRACE mg/dL (NEGATIVE); SPECIFIC GRAVITY 1.015 (1.005-1.020)
[2016-07-04 18:32] LABS: BACTERIA FEW /hpf (NONE SEEN); BILIRUBIN NEGATIVE (NEGATIVE); EPITHELIAL CELLS 0-5 /hpf (0-5); GLUCOSE 50 mg/dL (NEGATIVE); KETONE NEGATIVE (NEGATIVE); RED CELLS - URINE 0-5 /hpf (0-5); UROBILINOGEN NORMAL (NORMAL); WHITE CELLS - URINE 0-5 /hpf (0-5)
== END 2016-07-04 23:59 | disposition home or self-care (01) ==
LOC: D.ER 16:42
PROVIDERS: Emergency Medicine
DX: K57.92 Diverticulitis of intestine, part unspecified, without perforation or abscess without bleeding (principal); K59.00 Constipation, unspecified; N18.6 End stage renal disease; E11.9 Type 2 diabetes mellitus without complications; F17.200 Nicotine dependence, unspecified, uncomplicated

== ENCOUNTER 2016-08-15 10:31 | Emergency (ER) | payer MEDICARE ==
[2016-06-11 10:06] VITALS: BMI 22.5
[2016-08-15 11:31] LABS: BASOPHILS 0.3 % (0-2); EOSINOPHILS 1.8 % (0-7); HEMATOCRIT 26.8 % (36.0-48.0); HEMOGLOBIN 7.9 g/dL (12-16); IMMATURE GRANULOCYTES 0.1 % (0-5); LYMPHOCYTES 10.3 % (15-50); MCH 25.2 pg (26.0-34.0); MCHC 29.5 g/dL (31.0-37.0); MCV 85.4 fL (80.0-100.0); MEAN PLATELET VOLUME 9.1 fL (7.4-10.4); MONOCYTES 6.5 % (2-11); RBC 3.14 10x6/uL (4.00-5.40); RDW 15.5 % (11.5-14.5); WBC 6.8 10x3/uL (4.8-10.8)
[2016-08-15 11:31] LABS: APPEARANCE CLEAR (CLEAR); BILIRUBIN NEGATIVE (NEGATIVE); COLOR YELLOW (YELLOW); GLUCOSE 500 mg/dL (NEGATIVE); KETONE NEGATIVE (NEGATIVE); LEUKOCYTE ESTERASE TRACE (NEGATIVE); NITRITE NEGATIVE (NEGATIVE); PROTEIN 3+ mg/dL (NEGATIVE); SPECIFIC GRAVITY 1.005 (1.005-1.020); UROBILINOGEN NORMAL (NORMAL)
[2016-08-15 11:32] LABS: PLATELET COUNT 282 10x3/uL (130-400)
[2016-08-15 11:32] LABS: BACTERIA NONE SEEN /hpf (NONE SEEN); EPITHELIAL CELLS NSEEN /hpf (0-5); RED CELLS - URINE 0-5 /hpf (0-5); WHITE CELLS - URINE NSEEN /hpf (0-5)
[2016-08-15 11:50] LABS: ANION GAP 16.6 mmol/L (8-16); BILIRUBIN - TOTAL 0.24 mg/dL (0.2-1.3); CALCIUM 8.7 mg/dL (8.5-10.1); CARBON DIOXIDE 24.4 mmol/L (21.0-32.0); PROTEIN - SERUM 7.6 g/dL (6.4-8.2)
[2016-08-16] MEDS ORDERED: NEURONTIN 300300 MG PO (14:51)
== END 2016-08-15 15:45 | disposition home or self-care (01) ==
LOC: D.ER 10:31
PROVIDERS: Emergency Medicine Emergency Medical Services
DX: E86.0 Dehydration (principal); K52.9 Noninfective gastroenteritis and colitis, unspecified; E87.5 Hyperkalemia; N18.9 Chronic kidney disease, unspecified; F41.9 Anxiety disorder, unspecified; E11.9 Type 2 diabetes mellitus without complications

== ENCOUNTER 2016-08-16 09:50 | Inpatient (IN) | payer MEDICARE ==
[~2016-08-16] VITALS: Ht 160 cm; Wt 62.1 kg
[2016-08-16 11:04] LABS: BASOPHILS 0.3 % (0-2); EOSINOPHILS 1.7 % (0-7); HEMATOCRIT 27.4 % (36.0-48.0); HEMOGLOBIN 8.1 g/dL (12-16); IMMATURE GRANULOCYTES 0.2 % (0-5); LYMPHOCYTES 9.2 % (15-50); MCH 25.2 pg (26.0-34.0); MCHC 29.6 g/dL (31.0-37.0); MCV 85.4 fL (80.0-100.0); MEAN PLATELET VOLUME 9.1 fL (7.4-10.4); MONOCYTES 9.1 % (2-11); NEUTROPHILS 79.5 % (40-80); PLATELET COUNT 282 10x3/uL (130-400); RBC 3.21 10x6/uL (4.00-5.40); RDW 15.5 % (11.5-14.5); WBC 6.6 10x3/uL (4.8-10.8)
[2016-08-16 11:22] LABS: APPEARANCE CLEAR (CLEAR); BILIRUBIN NEGATIVE (NEGATIVE); COLOR YELLOW PINK (YELLOW); GLUCOSE 250 mg/dL (NEGATIVE); KETONE SMALL mg/dL (NEGATIVE); LEUKOCYTE ESTERASE NEGATIVE (NEGATIVE); NITRITE NEGATIVE (NEGATIVE); PROTEIN 3+ mg/dL (NEGATIVE); UROBILINOGEN NORMAL (NORMAL)
[2016-08-16 11:23] LABS: BACTERIA MODERATE /hpf (NONE SEEN); EPITHELIAL CELLS 0-5 /hpf (0-5); MUCUS <1+ /lpf (NONE SEEN)
[2016-08-16 11:35] LABS: ALBUMIN 1.9 g/dL (3.4-5.0); BILIRUBIN - TOTAL 0.29 mg/dL (0.2-1.3); CALCIUM 8.5 mg/dL (8.5-10.1); CARBON DIOXIDE 23.2 mmol/L (21.0-32.0); CREATININE - SERUM 4.2 mg/dL (0.6-1.3); PROTEIN - SERUM 7.3 g/dL (6.4-8.2)
[2016-08-16 11:36] LABS: ANION GAP 17.8 mmol/L (8-16)
[2016-08-16] MEDS ORDERED: NEURONTIN 300300 MG PO (14:51)
[2016-08-16 15:13] VITALS: BP 170/71; BMI 23.0
--- NOTE | 2016-08-16 17:25 | NUR ---
EARLIER PT ARRIVED FROM ER. FISTULA IN L ARM WITH BRUIT AND THRILL PRESENT. DR. COTTON HERE. PT CO NAUSEA AND PAIN. MEDICATED ACCORDINGLY.
--- NOTE | 2016-08-16 21:50 | NUR ---
PT C/O NAUSEA, MED GIVEN TO RESOLVE NAUSEA, AND MONITOR CLOSELY.
[2016-08-17 00:41] VITALS: BP 174/72
--- NOTE | 2016-08-17 01:44 | NUR ---
PT REST QUIETLY IN BED, BED LOW, CALL LIGHT WITHIN REACH.
--- NOTE | 2016-08-17 03:26 | NUR ---
PT C/O OF PAIN IN ALL OVER HER BODY, A SCALE OF 10, STATE SHE WANT DILAUDID INSTEAD OF MORPHIN. REPORT IT TO CHARGE NURSE.
--- NOTE | 2016-08-17 03:31 | NUR ---
PT IS UPSET SHE ONLY HAS MORPHINE ORDERED. PT REPEATEDLY REQUESTING TO HAVE DILAUDID. EXPLAINED TO PT THAT DAY SHIFT HAD REPORTEDLY SPOKE WITH PHYSICIAN AND ONLY MORPHINE WAS ORDERED. PT CALLS NURSING SUP AND EXPLAINS HER DISMAY ABOUT NOT HAVING DILAUDID. CALL TO SONAL LY APN CHIEF INFORMATICS OFFICER TO NOTIFY OF PTY'S DISSATISFACTION RE: HER PAIN MEDICATION. AWAITING RETURN CALL.
--- NOTE | 2016-08-17 03:38 | NUR ---
SPOKE WITH SONAL LY APN STREAMING MEDIA SPECIALIST. EXPLAINED TO HER ABOUT PT BEING UPSET ABOUT NOT HAVING DILAUDID. SONAL STATES WE CAN INCREASE HER MORPHINE TO 4 MG Q4H PRN FOR SEVERE PAIN. SONAL STATES MORPHINE IS A STRONG PAIN MEDICATION AND THE PT IS NOT GOING TO HAVE DILAUDID ORDERED. NURSING SUP UPDATED ON THIS SITUATION AND STATES SHE WILL SPEAK TO THE PT RE: HER POC FOR PAIN CONTROL.
[2016-08-17 04:23] VITALS: BP 191/76
[2016-08-17 08:00] VITALS: BP 141/60
--- NOTE | 2016-08-17 10:16 | NUR ---
DIALYSIS COORDINATOR: PATHWAYS: [facility] //Sat @ 10:15. Medical records have been forwarded to home unit for their records. HUGO BANUELOS.
--- NOTE | 2016-08-17 10:25 | NUR ---
PTS R.FA IV WAS INFILTRATED. D/C WITH CATHETER TIP FULLY INTACT. CALLED VASCULAR NURSE FOR NEW ACCESS AND SHE GOT ONE IN R.AC THAT IMMEDIATELY INFILTRATED WELL, NO OTHER VEINS ARE SEEN FOR POSSIBLE INSERTION. PT IS CRYING AND IN A LOT OF PAIN STILL. RENAL FLAME HARDENER HERE AND GAVE ORDERS FOR SURGERY CONSULT FOR A CVL PLACEMENT. SPOKE TO AND HE WILL BE DOWN WHEN HE IS ABLE, IN THE MEAN TIME WILL TRY TO GET PAIN MEDS ORDERED IM INJECTION FOR RELIEF.
[2016-08-17 12:00] VITALS: BP 200/84
--- NOTE | 2016-08-17 12:12 | NUR ---
PRN APRESOLINE GIVEN FOR HTN OF 191/80.
--- NOTE | 2016-08-17 12:40 | NUR ---
PT WANTING TO GET OOB AND AMBULATE AND PASS GAS. PT AMBULATING AROUND NURSES STATION WITH MOM AT SIDE AND WALKER. PT AMBULATED A TOTAL OF 1200FT WITHOUT ANY DIFFICULTES.
[2016-08-17 14:12] VITALS: Ht 160 cm; Wt 62.1 kg
--- NOTE | 2016-08-17 14:37 | NUR ---
PT FINALLY VOICED RELIEF FROM LAST IV DOSE OF MORPHINE. PT RESTING IN BED WITH FAMILY AT BEDSIDE. CONSENTS OBTAINED FOR CVL PLACEMENT LATER WITH . CL IN REACH, NO FURTHER NEEDS AT THIS TIME. WILL CPOC.
[2016-08-17 15:52] VITALS: BP 162/73
--- NOTE | 2016-08-17 17:00 | NUR ---
CALLED TO TALK ABOUT PTS PLAN OF CARE R/T FAMILY HAVING QUESTIONS AND PT NOT KNOWING WHATS GOING ON. PT WAS ADMITTED FOR VOMITING AND ABDOMINAL PAIN HOWEVER WASNT NAUSEATED MY ENTIRE SHIFT NOR HAS ANY VOMIT BEEN WITNESSED. PT WAS GOING TO HAVE A CVL PLACED TODAY HOWEVER WE CANCELLED R/T STATING SHE DOESNT NEED IT AND HE PLANS TO D/C HER TOMORROW. I TRIED TO EXPLAIN THIS ALL TO PT BUT SHE HAS HAD MANY PAIN MEDS AND KEEPS GOING IN/OUT FALLING ASLEEP. WILL PASS ON IN REPORT AND CPOC.
[2016-08-17 19:00] VITALS: BP 147/67
--- NOTE | 2016-08-17 20:37 | NUR ---
PT RECEIVED LYING IN BED AAOX3 WATCHING TV AT THIS TIME. REQUESTS MEDICATION FOR PAIN AND NAUSEA. ADMINISTERED MORPHINE IVP PER ORDERS FOR PAIN PT RATES 8/10 AND ZOFRAN IVP WELL. ASSESSMENT COMPLETED PER FLOW SHEET. PT DENIES NEEDS AT THIS TIME. BED LOW. PHONE AND CALL LIGHT IN REACH. SRX2.
--- NOTE | 2016-08-17 22:21 | NUR ---
WENT TO REASSESS PTS PAIN AT THIS TIME. PT RESTING QUIETLY WITH EYES CLOSED. RESPIRATIONS EVEN, NON-LABORED. NO ACUTE DISTRESS NOTED AT THIS TIME. BED LOW. PHONE AND CALL LIGHT IN REACH. SRX2.
--- NOTE | 2016-08-17 23:35 | NUR ---
PT RESTING QUIETLY AT THIS TIME WITH EYES CLOSED. RESPIRATIONS EVEN, NON-LABORED. NO ACUTE DISTRESS NOTED AT THIS TIME. BED LOW. PHONE AND CALL LIGHT IN REACH. SRX2.
[2016-08-18] VITALS: BP 185/63
--- NOTE | 2016-08-18 03:55 | NUR ---
ADMINISTERED MORPHINE IVP FOR PAIN PT RATES 11/03 AT THIS TIME. ALSO ADMINISTERED ZOFRAN IVP AND ATIVAN PO PER PT REQUEST. PT REQUESTS ORANGE JUICE AND ICE WATER. DENIES OTHER NEEDS. BED LOW. PHONE AND CALL LIGHT IN REACH. SRX2.
[2016-08-18 04:00] VITALS: BP 187/70
--- NOTE | 2016-08-18 05:39 | NUR ---
PROTONIX PO GIVEN AT THIS TIME. PT DENIES OTHER NEEDS. BED LOW. PHONE AND CALL LIGHT IN REACH. SRX2.
[2016-08-18 08:17] VITALS: BP 174/73
--- NOTE | 2016-08-18 10:23 | NUR ---
IV DC'D WITH TIP INTACT AND COVERED WITH 2X2 GAUZE AND TAPE PER JUNG/YONG
--- NOTE | 2016-08-18 10:40 | NUR ---
DISCHARGE INSTRUCTIONS REVIEWED WITH PT. VERBAL AND WRITTEN ACKNOWLEDGEMENT RETURNED
[2016-08-18 12:00] VITALS: BP 153/71
--- NOTE | 2016-08-18 12:09 | NUR ---
Patient Name: ARNAUD CORTES Admission Status: ER Accout number: [id number] Admission Date: 08-16-2016 : 1960 Admission Diagnosis: Attending: GITA Current LOS: 2 Anticipated DC Date: 08-18-2016 Planned Disposition: Home Primary Insurance: MEDICARE A & B Discharge Planning Comments: * Is the patient Alert and Oriented? Yes 0 * How many steps to enter\exit or inside your home? 3 W/RAIL 0 * PCP DR. NAVARRO 0 * Pharmacy [facility] IN [place] 0 * Preadmission Environment Home with Family 0 * ADLs Independent 0 * Equipment Other Shower Chair 0 * Other Equipment NO MEDICAL EQUIPMENT PROVIDER PREFERENCE 0 * List name and contact numbers for known caregivers / representatives who currently or will assist patient after discharge: MARCIAL GUZMÁN, MOM, 0 * Community resources currently utilized Other 0 * Please name any agencies selected above. OUTPATIENT DIALYSIS, [facility], , [address], PT DRIVES SELF AND WILL REESTABLISH WITH SCAT TRANSPORTATION 0 * Additional services required to return to the preadmission environment? No 0 * Can the patient safely return to the preadmission environment? Yes 0 * Has this patient been hospitalized within the prior 30 days at any hospital? Yes 0 CM MET WITH PT IN ROOM TO DISCUSS DISCHARGE PLANNING AND NEEDS. PT REPORTS LIVING AT HOME INDEPENDENTLY WITH HER MOTHER. PT HAS A SHOWER CHAIR AND HAND RAILS IN HER SHOWER. PT HAS NO MEDICAL EQUIPMENT PROVIDER PREFERENCE AND NO OUTSIDE SERVICES ASSISTING IN THE HOME. PT GOES TO OUTPATIENT DIALYSIS AT [facility] ON , [address], HAS BEEN DRIVING HERSELF BUT WILL BE CALLING TO ARRANGE SCAT AGAIN. PT REPORTS HAVING MEDICAID TRANSPORT NUMBER. CM DISCUSSED AVAILABILITY OF HOME HEALTH, REHAB SERVICES AND MEDICAL EQUIPMENT. PT DENIES DISCHARGE NEEDS, REPORTS HER UNCLE WILL PICK HER UP FOR DISCHARGE HOME TODAY. IMPORTANT MESSAGE FROM MEDICARE PROVIDED AND EXPLAINED Metal Template Maker: Ciro Denny
[2016-08-20 08:16] LABS: HEPATITIS C ANTIBODY <0.1 (0.0-0.9)
== END 2016-08-18 11:00 | disposition home or self-care (01) | DRG 640 ==
LOC: D.ER 09:50 → D.M2 12:18
PROVIDERS: Emergency Medicine; Internal Medicine; ADMIT Internal Medicine Hematology
DX: E86.0 Dehydration (principal); N18.6 End stage renal disease; I12.0 Hypertensive chronic kidney disease with stage 5 chronic kidney disease or end stage renal disease; C85.90 Non-Hodgkin lymphoma, unspecified, unspecified site; E87.5 Hyperkalemia; E11.22 Type 2 diabetes mellitus with diabetic chronic kidney disease; Z99.2 Dependence on renal dialysis; F41.9 Anxiety disorder, unspecified; Z72.0 Tobacco use

== ENCOUNTER 2016-09-23 19:34 | Inpatient (IN) | payer MEDICARE ==
[~2016-09-23] VITALS: Ht 160 cm; Wt 69.4 kg
[2016-09-23 20:35] LABS: HEMATOCRIT 30.5 % (36.0-48.0); HEMOGLOBIN 8.8 g/dL (12-16); MCH 25.7 pg (26.0-34.0); MCHC 28.9 g/dL (31.0-37.0); MCV 88.9 fL (80.0-100.0); MEAN PLATELET VOLUME 9.2 fL (7.4-10.4); RBC 3.43 10x6/uL (4.00-5.40); RDW 19.1 % (11.5-14.5); WBC 2.2 10x3/uL (4.8-10.8)
[2016-09-23 20:36] LABS: APPEARANCE CLEAR (CLEAR); BILIRUBIN NEGATIVE (NEGATIVE); COLOR YELLOW (YELLOW); GLUCOSE 50 mg/dL (NEGATIVE); KETONE NEGATIVE (NEGATIVE); LEUKOCYTE ESTERASE NEGATIVE (NEGATIVE); NITRITE NEGATIVE (NEGATIVE); PROTEIN 1+ mg/dL (NEGATIVE); UROBILINOGEN NORMAL (NORMAL)
[2016-09-23 20:36] LABS: PLATELET COUNT 171 10x3/uL (130-400)
[2016-09-23 20:55] LABS: ALBUMIN 1.9 g/dL (3.4-5.0); ANION GAP 17.1 mmol/L (8-16); BILIRUBIN - TOTAL 0.24 mg/dL (0.2-1.3); CALCIUM 7.8 mg/dL (8.5-10.1); CARBON DIOXIDE 25.5 mmol/L (21.0-32.0); CREATININE - SERUM 3.3 mg/dL (0.6-1.3); POTASSIUM - SERUM 4.6 mmol/L (3.5-5.1); PROTEIN - SERUM 6.8 g/dL (6.4-8.2)
[2016-09-23 21:23] LABS: EOSINOPHILS 5 % (0-7); LYMPHOCYTES 23 % (15-50); MONOCYTES 3 % (2-11); NEUTROPHILS 65 % (40-80); PLATELET ESTIMATE NORMAL
--- NOTE | 2016-09-24 01:31 | NUR ---
RECIEVED TO ROOM 2109 FROM ER VIA WC. PT A&O. RESPERATIONS LABORED, O2 AT 2 LITER VIA NC. VITALS STABLE. UP TO BR WITH ASSISTANCE FROM FAMILY, PT WEAK AND UNSTEADY. LEFT AVF (+,+). RESERVE LEFT ARM SIGNS PLACED ON OUT SIDE OF PTS DOOR AND ABOVE BED. FRESH WATER GIVEN, ORIENTED TO ROOM AND CL. NO NEEDS STATED AT THIS TIME, BED LOW, CL IN REACH.
[2016-09-24] MEDS ORDERED: PHENERGAN25 M1 PO (01:36)
[2016-09-24] MEDS ORDERED: ATIVAN0.5 MG PO (01:37)
[2016-09-24 04:00] VITALS: BP 150/62
[2016-09-24 05:07] VITALS: BMI 25.2
--- NOTE | 2016-09-24 07:21 | NUR ---
AM ROUNDS- PT IN BED, DENIES ANY NEEDS AT THIS TIME, BED LOW AND LOCKED. BED RAILS X2, CALL LIGHT IN REACH, NAD NOTED, WILL CONTINUE TO MONITOR.
[2016-09-24 08:00] VITALS: BP 158/73
--- NOTE | 2016-09-24 08:39 | NUR ---
ADMINISTERED AM MEDS AND 10MG OF NORCO FOR PAIN LEVEL OF 8/10. PT IN BED, DENIES ANY OTHER NEEDS AT THIS TIME. CALL LIGHT IN REACH, NAD NOTED, WILL CONTINUE TO MONITOR.
[2016-09-24] MEDS ORDERED: DURAGESIC1 PATCH .1 TRANSDERM (10:51)
--- NOTE | 2016-09-24 11:54 | NUR ---
OLD FENTANYL PATCHED REMOVED AND NEW PATCH PLACE TO LEFT ABD AREA, INITIAL AND DATED. PT IN BED, DENIES ANY NEEDS AT THIS TIME. CALL LIGHT IN REACH, NAD NOTED. WILL CONTINUE TO MONITOR.
[2016-09-24 12:00] VITALS: BP 144/72
[2016-09-24 14:30] VITALS: Ht 160 cm; Wt 69.4 kg
--- NOTE | 2016-09-24 14:54 | NUR ---
PT IN BED, WITH EYES CLOSED. CALL LIGHT IN REACH,NAD NOTED, WILL CONTINUE TO MONITOR.
--- NOTE | 2016-09-24 15:00 | NUR ---
PAGED DR. RICKETTS, WAITING ON HIM TO CALL BACK.
[2016-09-24 15:43] VITALS: BP 151/69
--- NOTE | 2016-09-24 16:35 | NUR ---
PT TRANSFERED TO DIALYSIS VIA BED, NAD NOTED.
--- NOTE | 2016-09-24 18:12 | NUR ---
CALLED BUILDING AND GROUNDS SUPERVISOR CASTILLO TO REMIND HIM THAT I STILL NEED SCD MACHINE.
--- NOTE | 2016-09-24 18:24 | NUR ---
PT STILL IN DIALYSIS. SCD MACHINE PLACED IN ROOM, WILL LET BRAILLE TYPIST NURSE TO PUT SCD'S ON WHEN PT GETS BACK TO ROOM.
[2016-09-24 20:00] VITALS: BP 139/69
--- NOTE | 2016-09-24 22:02 | NUR ---
PT IN DIALYSIS AT [facility]. REPORT RECEIVED FRO M DIALYSIS NURSE AT 1945 HRS. VSS AND 2L FLUID REMOVED. PT BACK TO ROOM AT 1999 HRS. VSS. NO IV. LAVF WITH GOOD BRUIT AND THRILL. LUNGS DIMINISHED IN BASES BILAT. FENTANYL PATCH NOTED TO L ABD. SORE NOTED TO R KNEE. NUMEROUS SORES NOTED TO R HAND, WRIST AND FA. PM MEDS GIVEN.. OPSITE APPLIED TO WOUND TO R KNEE AND R ARM. NORCO PO GINVE FOR C/O BREAKTHROUGH PAIN. SCD'S PLACED PER ORDER. PT CURENTLY RESTING WITH EYES CLOSED. RESP EVEN AND REGULAR. SR UP X2, CALL LIGHT WITHIN REACH.
--- NOTE | 2016-09-24 22:41 | NUR ---
PT AWAKES TO VERBAL STIMULI. DENIES ANY DISCOMFORT. O2 SZAT 96% ON RA. WILL CONTINUE TO MONITOR.
--- NOTE | 2016-09-25 01:34 | NUR ---
PT RESTING WITH EYES CLOSED. RESP EVEN AND REGULAR. SR UP X2, CALL LIGHT WITHIN REACH.
[2016-09-25 04:00] VITALS: BP 149/71
--- NOTE | 2016-09-25 04:49 | NUR ---
PT AWAKE DRINKING COFFEE. DENIES ANY DISCOMFORT. WILL CONTINUE TO MONITOR.
--- NOTE | 2016-09-25 06:33 | NUR ---
VSS THROUGHOUT NIGHT. PT STATED SHE SLEPT WELL. DENIES ANY DISCOMFORT AT THIS TIME. NEEDS MET; WILL CONTINUE TO MONITOR.
[2016-09-25 08:09] VITALS: BP 173/76
[2016-09-25 12:00] VITALS: BP 155/77
--- NOTE | 2016-09-25 13:59 | NUR ---
ALERT AND ORIENTED X4. RESTING IN BED. COMPLAINS OF ABDOMINAL CRAMPING 11/03. INTIATE PAIN MANAGEMENT ORDERED. PRN STOOL SOFTENER GIVEN ORDERED. DENIES SOB. CONTINUE PLAN OF CARE. BED LOCKED AND LOW. CALL LIGHT IN REACH. TWO SIDERAILS UP. REFUSE SCDs. SKIN TEARS ON RT ARM AND KNEE NOT WRAPPED TO ALLOW SCABBING.
--- NOTE | 2016-09-25 17:12 | NUR ---
ALERT AND ORIENTED X4. CONSENTS FOR CT GUIDED PARACENTESIS OF ABDOMEN AND INFUSAPORT PLACEMENT SIGNED ON CHART. BLOOD CONSENT SIGNED ON CHART. DENIES ANY NEEDS. CONTINUE PLAN OF CARE AND SAFETY PRECAUTIONS.
[2016-09-25 20:00] VITALS: BP 189/82
--- NOTE | 2016-09-25 22:12 | NUR ---
INITIAL ROUNDS COMPLETED AT 1915 HRS. PT DENIED ANY DISCOMFORT. ASSESSMENT COMPLETED AT 1950 HRS. NO IV ACCESS. LAVF WITH GOOD BRUIT AND THRILL. SORE NOTED TO R KNE. SEVERAL SMALL SORES NOTED TO R WRIST/FA. LUNGS DIMINISHED IN BASES BILAT. ABD DISTENDED. PT STATED HAD BM TODAY. SCD'S REMOVED AND SKIN INSPECTED. NO BREAKDOWN NOTED. SCD'S PLACED BACK ON. PM MEDS GIVEN WELL PM SNACK SERVED. PT CURRENTLY RESTING WITH EYES CLOSED. RESP EVEN AND REGULAR. SR UP X2, CALL LIGHT WITHIN REACH.
--- NOTE | 2016-09-26 00:18 | NUR ---
PT RESTING WITH EYES CLOSED. RESP EVEN AND REGULAR. SR UP X2, CALL LIGHT WITHIN REACH.
--- NOTE | 2016-09-26 02:00 | NUR ---
PT RESTING WITH EYES CLOSED. RESP EVEN AND REGULAR. SR UP X2, CALL LIGHT WITHIN REACH.
[2016-09-26 04:00] VITALS: BP 170/80
--- NOTE | 2016-09-26 04:57 | NUR ---
PT RESTING WITH EYES CLOSED. RESP EVEN AND REGULAR. SR UP X2, CALL LIGHT WITHIN REACH.
--- NOTE | 2016-09-26 06:30 | NUR ---
VSS THROUGHOUT NIGHT. PT DENIED ANY DISCOMFORT. NEEDS MET; WILL CONTINUE TO MONITRO.
[2016-09-26 09:13] VITALS: BP 172/75
--- NOTE | 2016-09-26 10:00 | NUR ---
ALERT AND ORIENTED X4. CT PARACENTESIS COMPLETE. 950mL FLUID TAKEN OFF. TRANSPORT TO DIALYSIS VIA BED FROM CT. CONTINUE PLAN OF CARE AND SAFETY PRECAUTIONS.
[2016-09-26 11:17] LABS: PROTEIN - BODY FLUID 3.9 G/DL
[2016-09-26 11:34] LABS: EOS BF 1 %; LYMPH - BF 40 %; MACROPHAGES BF 35 %; MESOTHELIALS BF 21 %; NEUT - BF 3 %
--- NOTE | 2016-09-26 11:45 | NUR ---
FAMILY IN ROOM. FAMILY EXPRESSES CONCERNS REGARDING ONCOLOGY MEDICATION TO BE TAKEN DAILY AND GLUCOSE MONITORING. PAGE PHILLIP RENAL PRINTING EQUIPMENT MECHANIC APPRENTICE. GLUCOSE BID ORDERED. ONCOLOGY DOCTOR PAGED REGARDING ONCOLOGY MEDICATION.
--- NOTE | 2016-09-26 13:38 | NUR ---
RETURN TO ROOM VIA BED FROM DIALYSIS. COMPLAINS OF NAUSEA. PRN ZOFRAN GIVEN ORDERED. FAMILY AT BEDSIDE. CONTINUE PLAN OF CARE AND SAFETY PRECAUTIONS.
[2016-09-26 13:42] VITALS: BP 125/64
--- NOTE | 2016-09-26 15:34 | NUR ---
Patient Name: ARNAUD CORTES Admission Status: ER Accout number: [id number] Admission Date: 09-24-2016 : 1960 Admission Diagnosis: Attending: TONY Current LOS: 2 Anticipated DC Date: Planned Disposition: Alf Facility Primary Insurance: MEDICARE A & B Discharge Planning Comments: CM MET WITH PATIENT TO DISCUSS DISCHARGE PLANNING/NEEDS. ALSO PRESENT IN THE ROOM WAS HER MOTHER AND SISTER. SHE RESIDES WITH HER MOTHER MARCIAL GUZMÁN WHO CURRENTLY ASSIST WITH ADL'S MUCH SHE CAN. SHE STATED THAT THE PATIENT HAS LOSS US OF HER MUSCLES SINCE ALL SHE DOES IS LAY IN BED AND TAKE PAIN PILLS, AND STILL REMAIN IN PAIN. PATIENT WOULD LIKE TO RETURN HOME WITH HOME HEALTH AND PHYSICAL THERAPY. AFTER HER MOM SPOKE WITH HER, THE PATIENT HAS AGREED FOR A [facility] FOR SOME THERAPY ON DISCHARGE. SHE STATED THAT IF THAT DOES NOT WORK OUT, SHE WANTS TO USE THE HOME HEALTH COMPANY OUT OF [place], "NOT THE [facility] ONE, BUT THE OTHER ONE". EXPLAINED I WOULD GET THE ORDER FOR THE REFERRAL AND WE COULD GO FROM THERE. SHE STATED OK. SHE HAS A REGULAR WALKER AT HOME AND DENIES ANY OTHER MEDICAL EQUIPMENT.. SHE GOES TO [facility] FOR DIALYSIS EVERY M,W,. SHE EITHER TAKES THE BUS OR A MEMBER OF HER FAMILY TAKES HER. SHE STATED THAT IT WOULD BE GOOD IF THEY COULD GET IN THE PENITENTIARY SO THAT SHE WOULD HAVE THAT TRANSPORTATION TO AND FROM DIALYSIS. HER AND HER FAMILY DENY ANY OTHER NEEDS AT THIS TIME. CM WILL CONTINUE TO FOLLOW AND ASSIST NEEDED. PT WAS COMPLAINING OF NAUSEA. HER NURSE WAS OFF THE FLOOR. SPOKE YONAS HILLIARD WHO STATED SHE WOULD GET HER SOMETHING FOR NAUSEA. Mva Still Operator: Roseline Dsouza Is the patient Alert and Oriented? Yes * How many steps to enter\\exit or inside your home? 3, RAILS * PCP DR NAVARRO * Pharmacy [facility] * Preadmission Environment Home with Family * ADLs Partial Dependent * Partial ADLs (Assistance needed) Ambulation Bathing Dressing Toileting Transfers * Equipment Walker * List name and contact numbers for known caregivers / representatives who currently or will assist patient after discharge: MOTHER, MARCIAL GUZMÁN, UNCLE LUCIANO GIRON, * Community resources currently utilized None * Additional services required to return to the preadmission environment? Yes * Can the patient safely return to the preadmission environment? Yes * Has this patient been hospitalized within the prior 30 days at any hospital? No
[2016-09-26 16:38] VITALS: BP 125/64
--- NOTE | 2016-09-26 19:20 | NUR ---
ALERT/AWAKE ORIENTED X 3. RATES PAIN LEVEL AT 6 ON NUMBER SCALE OF ABDOMEN, DESCRIBED ACHING. REQUESTED PAIN MEDICATION. IV IN RT HAND INTACT SL. LT ARM FISTULA WITH GOOD BRUIT/THRILL. SKIN TEAR ON RT ARM AND KNEE NOTED. ORIENTED TO CALL LIGHT FOR ANY NEEDS.
[2016-09-26 21:28] VITALS: BP 159/67
[2016-09-27 00:44] VITALS: BP 183/79
--- NOTE | 2016-09-27 05:20 | NUR ---
ADMIN NORCO 10 AND PHENERGAN FOR C/O LEG PAIN LEVEL 8 AND NAUSEA. NO OTHER NEEDS VOICED.
[2016-09-27 05:25] VITALS: BP 150/69
[2016-09-27 08:00] VITALS: BP 166/77
[2016-09-27 10:12] LABS: HEPATITIS C ANTIBODY <0.1 (0.0-0.9)
--- NOTE | 2016-09-27 10:28 | NUR ---
TAKEN TO DIALYSIS VIA BED. ALERT AND ORIENTED X4. CONTINUE PLAN OF CARE AND SAFETY PRECAUTIONS.
--- NOTE | 2016-09-27 10:33 | NUR ---
Patient Name: ARNAUD CORTES Encounter No: [id number] : 1960 Primary Insurance: MEDICARE A & B Anticipated DC Date: Planned Disposition: Snf Facility External Planned Provider: JOSE LUIS MAGUIRE DCP follow-up note: CM SPOKE TO PT IN ROOM REGARDING REHAB PLACEMENT AT [facility]. PT IN AGREEMENT WITH DISCHARGE TO [facility] FOR REHAB, STATES SHE SHOULD HAVE WENT TO REHAB AFTER LAST ADMISSION BUT DID NOT. PT SIGNED CHOICE FOR [facility]. PT ASSISTED CM WITH COMPLETING [facility] ASSESSMENT. [facility] PLACED ON FRONT OF CHART FOR DOCTORS SIGNATURE. CM FAXED REFERRAL TO [facility] AT [phone]. CM CALLED [facility], , SPOKE TO NATHALY WHO REPORTS THAT SCREENING WILL BEGIN TOMORROW NO ADMINISTRATIVE STAFF ARE IN TODAY AT THE FACILITY. CM WAITING RECEIPT OF DOCTORS SIGNATURE ON [facility]KY SCREENING (ON FRONT OF CHART) AND WILL FAX TO [facility] AT [phone]. CM WAITING ADMISSION DETERMINATION FROM [facility]. Ciro Denny, CASE MANAGEMENT
[2016-09-27 14:36] LABS: BASOPHILS 0.5 % (0-2); EOSINOPHILS 5.6 % (0-7); HEMOGLOBIN 8.2 g/dL (12-16); IMMATURE GRANULOCYTES 0.5 % (0-5); LYMPHOCYTES 25.8 % (15-50); MCHC 28.3 g/dL (31.0-37.0); MCV 92.1 fL (80.0-100.0); MEAN PLATELET VOLUME 8.9 fL (7.4-10.4); MONOCYTES 9.9 % (2-11); NEUTROPHILS 57.7 % (40-80); RBC 3.15 10x6/uL (4.00-5.40); RDW 20.1 % (11.5-14.5); WBC 2.1 10x3/uL (4.8-10.8)
[2016-09-27 14:37] LABS: PLATELET COUNT 105 10x3/uL (130-400)
[2016-09-27 14:46] LABS: ANION GAP 13.6 mmol/L (8-16); CALCIUM 7.8 mg/dL (8.5-10.1); CARBON DIOXIDE 26.4 mmol/L (21.0-32.0); CREATININE - SERUM 3.3 mg/dL (0.6-1.3); PHOSPHOROUS 3.6 mg/dL (2.5-4.9)
[2016-09-27 16:00] VITALS: BP 140/72
--- NOTE | 2016-09-27 19:25 | NUR ---
ALERT/AWAKE WATCHING TV. SHIFT ASSESSMENT'S COMPLETED. SEE COMPUTER FLOWSHEET. IV IN R HAND INTACT SL. LEFT ARM FISTULA NOTED WITH POSITIVE BRUIT AND THRILL. DENIES ANY NEEDS OR DISCOMFORTS.
[2016-09-27 21:41] VITALS: BP 157/72
--- NOTE | 2016-09-27 21:45 | NUR ---
ADMIN SCHED MEDS AND ZOFRAN 4MG PO PER REQUEST FOR C/O NAUSEA.
[2016-09-28] VITALS (7 sets, daily range): BP systolic 129–184; BP diastolic 60–101
--- NOTE | 2016-09-28 00:09 | NUR ---
RETURNING TO BED FROM BATHROOM. DENIES ANY NEEDS.
--- NOTE | 2016-09-28 03:30 | NUR ---
RESTING WITH EYES CLOSED. RR 18 EVEN U/L. NO S/S OF PAIN OR DISCOMFORT. CL IN REACH.
--- NOTE | 2016-09-28 08:00 | NUR ---
SPOKE WITH DR. JACOBS, HE STATED THAT MED SUNITINIB NEEDED TO BE D/C BUT THAT HE WAS NOT ABLE TO D/C MED ON COMPUTER TO CALL PHARMACY AND HAVE IT D/C BECAUSE IT'S MAKING PT BLOOD COUNT TO DROP. CALLED PHARMACY AND SPOKE WITH BIGG THE PHARMACIST, HE STATED THAT HE WOULD CHECK PT'S MEDS AND D/C MED.
[2016-09-28 08:03] LABS: BASOPHILS 0.4 % (0-2); EOSINOPHILS 7.2 % (0-7); HEMATOCRIT 33.3 % (36.0-48.0); HEMOGLOBIN 9.7 g/dL (12-16); LYMPHOCYTES 31.3 % (15-50); MCH 26.4 pg (26.0-34.0); MCHC 29.1 g/dL (31.0-37.0); MCV 90.5 fL (80.0-100.0); MEAN PLATELET VOLUME 8.8 fL (7.4-10.4); MONOCYTES 6.4 % (2-11); NEUTROPHILS 54.7 % (40-80); RBC 3.68 10x6/uL (4.00-5.40)
[2016-09-28 08:04] LABS: PLATELET COUNT 136 10x3/uL (130-400); WBC 2.7 10x3/uL (4.8-10.8)
[2016-09-28 08:11] LABS: INR 0.99 (0.85-1.17)
[2016-09-28 08:17] LABS: ANION GAP 15.8 mmol/L (8-16); CALCIUM 8.1 mg/dL (8.5-10.1); CARBON DIOXIDE 26.7 mmol/L (21.0-32.0); CREATININE - SERUM 3.9 mg/dL (0.6-1.3); PHOSPHOROUS 4.3 mg/dL (2.5-4.9); POTASSIUM - SERUM 4.5 mmol/L (3.5-5.1)
--- NOTE | 2016-09-28 09:39 | NUR ---
Patient Name: ARNAUD CORTES Encounter No: [id number] : 1960 Primary Insurance: MEDICARE A & B Anticipated DC Date: Planned Disposition: [facility] Facility External Planned Provider: [facility], MEDICARE REHAB BED DCP follow-up note: CM RECEIVED DOCTORS SIGNAURE ON [facility] SCREENING, FAXED TO [facility] WITH SUPPORTING DOCUMENTS AT [phone]. CM FAXED UPDATE TO [facility] AT [phone]. CM WAITING COMPLETION AND RESULT OF [facility] SCREENING; CM WAITING ADMISSION DETERMINATION FROM [facility] FOR REHAB PLACEMENT Ciro Denny, CASE MANAGEMENT
--- NOTE | 2016-09-28 10:35 | NUR ---
WENT TO GIVE PT ZOFRAN IV FOR NUASEA, IV WAS INFILTRATED, D/C IV TIP INTACT, PT REQUESTING PAIN SHOT AND WANTS TO TALK TO DR. LIZAMA OR LINK MACHINE OPERATOR. WILL LET SONAL LY KNOW. FAMILY AT BEDSIDE, STATES THAT PT BLOOD SUGAR IS TOO LOW AT 91, WANTS SOMETHING GIVEN TO BRING IT UP. PT DENIES ANY OTHER NEEDS AT THIS TIME. CALL LIGHT IN REACH, NAD NOTED, WILL CONTINUE TO MONTIOR.
--- NOTE | 2016-09-28 10:45 | NUR ---
SONAL LY, NOTIFIED REGARIDNG PT WANTING PAIN MEDS, AND FAMILY STATING THAT PT'S BLOOD SUGAR BEING TOO LOW AT 91. SONAL LY STATED THAT SHE WOULD ORDER SOMETHING FOR PAIN IM. SHE ALSO STATED THAT PT DID NOT NEED ANYTHING TO BRING HER SUGAR UP BECAUSE THEN IT WOULD GET TOO HIGH. NO NEW ORDERES GIVEN AT THIS TIME.
--- NOTE | 2016-09-28 11:23 | NUR ---
ADMINISTERED 0.1MG OF BUPRENEX FOR PAIN LEVEL OF 9/10. PT STILL C/O NUASEA, WANTS ZOFRAN, BUT NOT ABLE TO GIVE IM. PT DENIES ANY OTHER NEEDS AT THIS TIME. FAMILY AT BEDSIDE, NAD NOTED, WILL CONTINUE TO MONITOR.
--- NOTE | 2016-09-28 11:23 | NUR ---
0.1MG OF BUPRENEX GIVEN IM TO LEFT DORSALGLUTEAL, AND 2MG OF ZOFRAN GIVEN IM TO RIGHT DORSALGLUTEAL AREA. PT IN BED, DENIES ANY OTHER NEEDS AT THIS TIME. FAMILY AT BEDSIDE, CALL LIGHT IN REACH, NAD NOTED, WILL CONTINUE TO MONITOR.
--- NOTE | 2016-09-28 12:28 | NUR ---
PRE-OP MEDS GIVEN AT THIS TIME. NAD NOTED, CALL LIGHT IN REACH, WILL CONTINUE TO MONITOR.
--- NOTE | 2016-09-28 12:43 | NUR ---
PT TRANSFERED TO OR FOR PORT PLACEMENT, NAD NOTED.
--- NOTE | 2016-09-28 15:43 | NUR ---
PT TRANSFERED BACK TO ROOM 2109. PT STILL C/O PAIN 12/04. 10MG OF NORCO GIVEN ALSO ADMINSITERED 4MG OF ZOFRAN FOR NAUSEA AND CHECKED BLOOD SUGAR PER FAMILY REQUEST. BLOOD SUGAR WAS 71. PT DENIES ANY OTHER NEEDS AT THIS TIME. CALL LIGHT IN REACH, NAD NOTED, WILL CONTINUE TO MONITOR.
--- NOTE | 2016-09-28 19:52 | NUR ---
RECEIVED REPORT, WILL ASSUME CARE OF PT, ASKING FOR ATIVAN, WILL GIVE AT 2100, BED IS LOW, SRX2, CALL LIGHT IN REACH, WILL CONTINUE PLAN OF CARE
[2016-09-29] VITALS: BP 154/69
--- NOTE | 2016-09-29 03:11 | NUR ---
PROPERTY FIELD ADJUSTER AT BEDSIDE TO OBTAIN VITALS, CALL LIGHT IN REACH. WILL CONTINUE TO MONITOR.
[2016-09-29 04:00] VITALS: BP 157/78
--- NOTE | 2016-09-29 04:38 | NUR ---
ASSESSMENT COMPLETE, SEE FLOWSHEET, BED IS LOW, SRX2, CALL LIGHT IN REACH, WILL CONTINUE TO MONITOR
[2016-09-29 06:15] LABS: BASOPHILS 0 % (0-2); EOSINOPHILS 4.6 % (0-7); MCH 26.6 pg (26.0-34.0); MCHC 29.4 g/dL (31.0-37.0); MCV 90.6 fL (80.0-100.0); MEAN PLATELET VOLUME 9.1 fL (7.4-10.4); NEUTROPHILS 60.4 % (40-80); PLATELET COUNT 123 10x3/uL (130-400); RDW 19.9 % (11.5-14.5); WBC 2.2 10x3/uL (4.8-10.8)
[2016-09-29 06:41] LABS: HEMATOCRIT 25.2 % (36.0-48.0); RBC 2.78 10x6/uL (4.00-5.40)
[2016-09-29 06:42] LABS: ANION GAP 15.7 mmol/L (8-16); CALCIUM 7.3 mg/dL (8.5-10.1); CARBON DIOXIDE 25.3 mmol/L (21.0-32.0); CREATININE - SERUM 4.3 mg/dL (0.6-1.3); HEMOGLOBIN 7.4 g/dL (12-16); PHOSPHOROUS 5.6 mg/dL (2.5-4.9)
[2016-09-29 07:37] LABS: BASOPHILS 0.5 % (0-2); EOSINOPHILS 5.3 % (0-7); HEMATOCRIT 26.4 % (36.0-48.0); HEMOGLOBIN 7.7 g/dL (12-16); LYMPHOCYTES 24.2 % (15-50); MCH 26.5 pg (26.0-34.0); MCHC 29.2 g/dL (31.0-37.0); MCV 90.7 fL (80.0-100.0); MEAN PLATELET VOLUME 8.5 fL (7.4-10.4); MONOCYTES 8.2 % (2-11); NEUTROPHILS 61.8 % (40-80); PLATELET COUNT 121 10x3/uL (130-400); RBC 2.91 10x6/uL (4.00-5.40); RDW 19.8 % (11.5-14.5); WBC 2.1 10x3/uL (4.8-10.8)
[2016-09-29 08:15] VITALS: BP 111/61
--- NOTE | 2016-09-29 09:36 | NUR ---
Patient Name: ARNAUD CORTES Encounter No: [id number] : 1960 Primary Insurance: MEDICARE A & B Anticipated DC Date: Planned Disposition: Senior Living Facility External Planned Provider: [facility] DCP follow-up note: CM RECEIVED CALL FROM MATTIE OF [facility] WHO WANTED TO KNOW WHAT ORAL CHEMO MEDICATION PT WAS TAKING. CM PROVIDED INFORMATION, PT REPORTS SHE IS PROVIDING MEDICATION FROM HOME AND CAN DO THE SAME FOR THE [facility] IF IT IS RESTARTED. CM NOTIFIED MATTIE. MATTIE REPORTS SHE PLANS TO ACCEPT PT AT [facility] PENDING [employer] APPROVAL AND IF SOMETHING CAN BE WORKED OUT REGARDING CHEMO MEDICATIONS. CM REVIEWED ELECTRONIC FAX CONFIRMATIONS FROM YESTERDAY, FOUND THAT E-FAX TO [employer] FAILED MULTIPLE TIMES. CM REFAXED TO [employer] MANUALLY AT [phone]. PT NOTIFIED OF PROGRESS. CM WAITING RESULT OF [employer] ASSESSMENT / SCREENING. [facility] PLANNING TO ACCEPT PT WITH APPROVAL OF [facility] WELL DEPENDING ON PT'S CHEMO DRUG NEEDS. Ciro Denny, CASE MANAGEMENT
[2016-09-29 16:26] VITALS: BP 186/93
--- NOTE | 2016-09-29 16:57 | NUR ---
Patient Name: ARNAUD CORTES Encounter No: [id number] : 1960 Primary Insurance: MEDICARE A & B Anticipated DC Date: Planned Disposition: Residential Facility External Planned Provider: [facility], MEDICARE REHAB BED DCP follow-up note: CM RECEIVED [facility], PT IS HOSPITAL DISCHARGE EXPEMPTED AND MAY ENTER CARE HOME FACILITY FOR UP TO [address] [facility] PLANNING TO ACCEPT PT DEPENDING ON PT'S CHEMO DRUG NEEDS. CM TO FAX DISCHARGE MEDICATION LIST TO [facility] AT [phone]; CM TO NOTIFY MATTIE OF [facility], , WHEN PT IS READY FOR DISCHARGE AND DISCHARGE MEDICATION LIST FOR FINAL APPROVAL TO ENTER FACILITY. Ciro Denny, CASE MANAGEMENT
--- NOTE | 2016-09-29 18:23 | NUR ---
PATIENT GIVEN IV ZOFRAN PER REQUEST. SHE STATES THAT SHE VOMITED HER PHENERGAN. SHE REFUSED THE PAIN MEDICATION STATING THAT SHE WOULD VOMIT IT UP. HER PORT FLUSHES EASILY AFTER FLASH/MEDS. WRAPPED HER RIGHT ARM WITH LERLEX TO PROTECT THE SKIN FROM THE ARM BANDS THAT ARE NICKING AT HER SKIN AND CAUSING PURPLE DISCOLORATIONS UNDER THE SKIN. SHE VOICED APPRECIATION.
[2016-09-29 19:00] VITALS: BP 175/85
--- NOTE | 2016-09-29 19:28 | NUR ---
RECEIVED REPORT, WILL ASSUME CARE OF PT, PT SLEEPING, BED IS LOW, SRX2, CALL LIGHT IN REACH, WILL CONTINUE PLAN OF CARE
[2016-09-30] VITALS: BP 152/83
[2016-09-30 04:00] VITALS: BP 171/81
--- NOTE | 2016-09-30 04:20 | NUR ---
ASSESSMENT COMPLETE, SEE FLOWSHEET, DID BLOOD DRAW, PT ASKING FOR ZOFRAN, WENT BACK TO GIVE AND PT WAS SLEEPING, BED IS LOW, SRX2, CALL LIGHT IN REACH, WILL CONTINUE PLAN OF CARE
[2016-09-30 05:17] LABS: BASOPHILS 0.4 % (0-2); EOSINOPHILS 6.4 % (0-7); LYMPHOCYTES 23.4 % (15-50); MCH 27.8 pg (26.0-34.0); MCV 89.9 fL (80.0-100.0); MEAN PLATELET VOLUME 9.1 fL (7.4-10.4); MONOCYTES 9.1 % (2-11); NEUTROPHILS 60.7 % (40-80); PLATELET COUNT 124 10x3/uL (130-400); RDW 18.4 % (11.5-14.5)
[2016-09-30 05:18] LABS: HEMATOCRIT 35.5 % (36.0-48.0); RBC 3.95 10x6/uL (4.00-5.40); WBC 2.7 10x3/uL (4.8-10.8)
[2016-09-30 05:43] LABS: ANION GAP 13.3 mmol/L (8-16); CALCIUM 7.5 mg/dL (8.5-10.1); CREATININE - SERUM 4.2 mg/dL (0.6-1.3); PHOSPHOROUS 5.1 mg/dL (2.5-4.9); POTASSIUM - SERUM 4.3 mmol/L (3.5-5.1)
[2016-09-30 08:20] VITALS: BP 129/70
--- NOTE | 2016-09-30 09:57 | NUR ---
PATIENT OFF THE UNIT TO DIALYSIS
[2016-09-30] MEDS ORDERED: MIDODRINE HCL5 MG PO (11:39)
--- NOTE | 2016-09-30 13:06 | NUR ---
Patient Name: ARNAUD CORTES Encounter No: [id number] : 1960 Primary Insurance: MEDICARE A & B Anticipated DC Date: Planned Disposition: Senior Care Facility External Planned Provider: [facility], MEDICARE REHAB BED DCP follow-up note: CM SPOKE TO MATTIE OF [facility], THEY WILL ACCEPT TODAY, SHE HAS SPOKEN TO PT AND PT WILL BRING CHEMO MEDICATION FROM HOME IF NEEDED AND PT'S MOTHER WILL TRANSPORT TO REHAB TODAY. CM FAXED DISCHARGE INFORMATION TO [facility] AT [phone]. CM SPOKE TO PT IN DIALYSIS WHO IS IN AGREEMENT WITH DISCHARGE PLAN. IMPORTANT MESSAGE FROM MEDICARE PROVIDED AND EXPLAINED. CM NOTIFIED ANALY GRANGER OF [facility] TO NOTIFY OUTPATIENT DIALYSIS CLINIC. NURSE REPORT TO BE CALLED TO [facility], . PT'S MOTHER TO TUBE MACHINE OPERATOR PT TODAY AND TRANSPORT TO [facility] FOR REHAB. Ciro Denny, CASE MANAGEMENT
--- NOTE | 2016-09-30 13:39 | NUR ---
PATIENT NOTIFIED THAT HER DISCHARGE PAPERWORK IS READY FOR HER DEPARTURE. REPORT CALLED TO [facility], SPOKE WITH PETER
--- NOTE | 2016-09-30 15:05 | NUR ---
PATEINT WHEELED OUT TO WAITING VEHICLE.
--- NOTE | 2016-10-03 13:13 | EC ---
PATIENT:ARNAUD CORTES DATE OF SERVICE: 09/24/16 SEX: F MEDICAL RECORD: [id number] DATE OF : 60 LOCATION:[address] AGE OF PATIENT: 56 ADMISSION DATE: 09/24/16 REFERRING PHYSICIAN: INTERPRETING PHYSICIAN: OVIDIO LEDESMA MD ECHOCARDIOGRAM REPORT ECHO CHARGES 4 ECHO COMPLETE CLINICAL DIAGNOSIS: ANASARCA ECHOCARDIOGRAPHIC MEASUREMENTS (adult normal given) AC root (d.<3.7cm) 3.2 LV Septum d (<1.2 cm> 1.1 Valve Excursion 2.0 LV Septum (systole) 1.4 Left Atria (s.<4.0cm> 3.3 LVPW d(<1.2cm) 1.1 RV (d.<2.3cm) 2.1 LVPW (sytole) 1.8 LV diastole(<5.6CM) 5.9 MV E-F(>70mm/sec) LV systole 4.0 LVOT Diameter 1.9 MV exc.(>10mm) Est.ejection fraction (50-75%) Pericardial Effusion Y DOPPLER: LVIT A 98.0 E 58.0 LA RVSP 16.2 LVOT 100 AOP1/2T Asc. Ao 156 RVOT 88.0 RA PA 96.0 AV Gradient Peak 9.7 AV Mean 5.0 AV Area 1.9 MV Gradient Peak 6.4 MV Mean 2.2 MV Area COMMENTS: C.O.D. Clerk: Benjamin SHIPLEYOE Thermoplastic Technician:Sade Jacobs TAPE# PACS DATE OF SERVICE: 09/25/2016 TWO-DIMENSIONAL ECHOCARDIOGRAM WITH DOPPLER Adequate two-dimensional color flow imaging, spectral Doppler, and M mode. Left ventricular hypertrophy is present. Left ventricular internal dimensions are normal. Wall motion is normal. Ejection fraction is greater than or equal to 55%. The aortic valve is tricuspid with no evidence of stenosis on Doppler interrogation. Left atrium is normal at 3.3 centimeters. Mitral valve shows no prolapse with trace mitral regurgitation. Right-sided chambers are grossly normal with trace ECHOCARDIOGRAM REPORT [id number] ARNAUD CORTES tricuspid regurgitation. OVIDIO LEDESMA MD at [id number] CC: [id number] DICTATION DATE: 09/26/16 1200 SENIOR NET APPLICATION DEVELOPER: DM 09/26/16 1519 DIS IN 09/30/16 [facility] [address] [facility] [place] [address]
== END 2016-09-30 16:25 | DRG 673 ==
LOC: D.ER 19:34 → D.M2 09-24 00:16
PROVIDERS: Emergency Medicine; Internal Medicine Nephrology; Radiology Diagnostic Radiology; ADMIT Internal Medicine Nephrology
PROC: 5A1D60Z (ICD-10-PCS; 2016-09-24)
PROC: 0W9G3ZZ Drainage of Peritoneal Cavity, Percutaneous Approach (ICD-10-PCS; principal; 2016-09-26 09:00)
PROC: 0JH63XZ Insertion of Tunneled Vascular Access Device into Chest Subcutaneous Tissue and Fascia, Percutaneous Approach (ICD-10-PCS; 2016-09-28)
PROC: 02HV33Z Insertion of Infusion Device into Superior Vena Cava, Percutaneous Approach (ICD-10-PCS; 2016-09-28)
PROC: B5181ZA Fluoroscopy of Superior Vena Cava using Low Osmolar Contrast, Guidance (ICD-10-PCS; 2016-09-28)
DX: I12.0 Hypertensive chronic kidney disease with stage 5 chronic kidney disease or end stage renal disease (principal); N18.6 End stage renal disease; D61.810 Antineoplastic chemotherapy induced pancytopenia; C64.9 Malignant neoplasm of unspecified kidney, except renal pelvis; R18.8 Other ascites; C77.1 Secondary and unspecified malignant neoplasm of intrathoracic lymph nodes; C77.2 Secondary and unspecified malignant neoplasm of intra-abdominal lymph nodes; E11.22 Type 2 diabetes mellitus with diabetic chronic kidney disease; Z99.2 Dependence on renal dialysis; D64.9 Anemia, unspecified; K21.9 Gastro-esophageal reflux disease without esophagitis; F41.9 Anxiety disorder, unspecified; G89.29 Other chronic pain; Z72.0 Tobacco use